=== PATIENT | female | born 1960 | race Caucasian/White ===

== ENCOUNTER 2023-01-25 11:18 | Emergency (ER) | payer MEDICARE, MEDICAID, SELFPAY ==
--- NOTE | 2023-01-25 11:15 | RT.EKG_ITS ---
APPROVED REPORT Exam: Resting ECG Reason for Exam: sob Patient Location: E HR:97 bpm ECG Measurements Heart Rate 97 AXIS WV 120 P 88 QRSd 86 QRS 88 QT 334 T 12 QTc 424 Conclusion Sinus rhythm...normal P axis, V-rate 60- 99 Right atrial enlargement...P>0.25mV 2 lds or<-0.24mV aVR/aVL Anterior infarct, old...Q >40mS, abnormal ST-T, V2-V5 Narrow complex normal sinus rhythm at a rate of 97. Normal axis. No ST segment elevations. ST segm ent depressions V4 through V6. No prior for comparison.
[2023-01-25 11:22] VITALS: BP 134/104; PULSE 110; RESP 24; TEMP 36.7; O2SAT 98
--- NOTE | 2023-01-25 11:29 | W.ED.GENAD ---
Discharge Plan Disposition Patient Disposition: Home Discharge Details Clinical Impression: Acute exacerbation of chronic obstructive pulmonary disease Primary Care Provider: None,None ED Provider: Nadeem Morales Home Meds and New Rx's Prescriptions: New doxycycline hyclate 100 mg capsule 100 mg PO BID Qty: 5 0RF doxycycline hyclate 100 mg capsule 100 mg PO BID Qty: 5 0RF prednisone 20 mg tablet 40 mg PO DAILY 5 Days Qty: 10 0RF ipratropium-albuterol 0.5 mg-3 mg(2.5 mg base)/3 mL solution for nebulization 3 ml inhalation Q20M PRNQty: 180 0RF Rx Instructions: for 3 doses doxycycline hyclate 100 mg capsule 100 mg PO BID Qty: 5 0RF doxycycline hyclate 100 mg capsule 100 mg PO BID Qty: 10 0RF Discharge Instructions Instructions: COPD (Chronic Obstructive Pulmonary Disease) (ED) Additional Instructions: You are seen in the emergency department for your shortness of breath. You are receiving a prescription for antibiotics and steroids which you should take as directed to treat an exacerbation of your COPD. If you feel more short of breath please return to the emergency department. If you develop fevers please return. A prescription has also been sent for a nebulizer which you should use as directed. Discharge Data Discharge Date/Time-TO BE ENTERED AT DEPARTURE: 01/25/23 13:42 Medical Decision Making This is a mildly tachypneic and tachycardic 62-year-old female with tobacco use and history of what sounds like reactive airway disease currently in exacerbation with decreased breath sounds and decreased air entry. Given her tachycardia and her lack of known medical history will obtain a D-dimer to assess for risk of PE. No specific chest pain however based on age will obtain a troponin and if negative will be reassured against ACS. No significant fevers so doubt pneumonia. No history of malignancy so doubt postobstructive process. No history of trauma to suggest pneumothorax. Will reassess and treat with 500 cc of fluid to cover insensible losses. Patient's limited bedside echocardiogram is not consistent with acute CHF and furthermore she has no history of lower extremity swelling or increased weight gain. I considered sepsis as the patient is tachycardic however she is nontoxic-appearing and has had no fevers and I suspect that her tachycardia is secondary to nebulized beta agonists so we will defer lactate blood cultures and broad-spectrum antibiotics at this point time. Given trace pericardial effusion on limited bedside echocardiogram will obtain formal echocardiogram. 12:40 PM CBC notable for leukocytosis and thrombocytosis. No anemia. Chest x-ray reassuring against infiltrate or pneumothorax. Negative troponin. CBC with mild hyperglycemia but no anion gap to suggest DKA. Reassuring creatinine. No acute electrolyte abnormalities. Normal magnesium. Negative D-dimer. Patient reports that she is satisfied with a primary care provider. She needs a refill of her albuterol nebulizer. We will also send her with a burst of prednisone and doxycycline to acute exacerbation of COPD. 1:30 PM I spoke with collections technician Jeri who did not note any significant pericardial effusion. She also noted normal EF. We will discharge patient now. 1:45 PM Jeri called back and she noted that there could possibly be a small pericardial effusion. Patient had already been discharged. I asked health community health director Christen to arrange for follow-up with the patient's PCP in 10 days for repeat reassessment. I called the patient and she was in the parking lot. I advised her of this abnormal echocardiogram. I advised her to follow-up with her primary care provider. Chronic conditions affecting the care of the patient: COPD History obtained from an outside historian: N/A External record review: [facility] EMR Diagnostic interpretations performed by me: [Per my independent interpretation chest x-ray shows:] No acute infiltrate [Per my independent interpretation EKG shows:] Narrow complex normal sinus rhythm at a rate of 97. Normal axis. No ST segment elevations. ST segment depressions V4 through V6. No prior for comparison. Medications: Improved with nebs Social determinants of health affecting disposition: N/A Management discussed with: N/A Treatment/interventions considered: Hospitalization but deferred Response to therapies provided: [place] markedly improved following nebs HPI General Date/Time Provider Initiated Documentation: 01/25/23 11:29. HPI Narrative: This is a 62-year-old female with a history of reactive airway disease arriving via private vehicle in the setting of worsening shortness of breath. Patient says her shortness of breath is worsened over the past several months. She was previously treated with nebulizers and she has attempted treatment at home prior to arrival. She said that this helped slightly. She does not have a primary care provider. She is not having any chest pain. She has never had a PE nor DVT. She quit smoking approximately 1 month ago. She denies routine ethanol. She denies any fevers. She has had increased purulent sputum. She denies any recent falls. Symptoms feel reminiscent of prior episode of reactive airway disease. Related Data Home Medications Medication Instructions Recorded Confirmed doxycycline hyclate 100 mg capsule 100 mg PO BID #10 caps 01/25/23 doxycycline hyclate 100 mg capsule 100 mg PO BID #5 caps 01/25/23 doxycycline hyclate 100 mg capsule 100 mg PO BID #5 caps 01/25/23 doxycycline hyclate 100 mg capsule 100 mg PO BID #5 caps 01/25/23 ipratropium 0.5 mg-albuterol 3 mg 3 ml inhalation Q20M PRN #180 mL 01/25/23 (2.5 mg base)/3 mL nebulization soln prednisone 20 mg tablet 40 mg PO DAILY 5 days #10 tabs 01/25/23 Previous Rx's Medication Instructions Recorded doxycycline hyclate 100 mg capsule 100 mg PO BID #10 caps 01/25/23 doxycycline hyclate 100 mg capsule 100 mg PO BID #5 caps 01/25/23 doxycycline hyclate 100 mg capsule 100 mg PO BID #5 caps 01/25/23 doxycycline hyclate 100 mg capsule 100 mg PO BID #5 caps 01/25/23 ipratropium 0.5 mg-albuterol 3 mg 3 ml inhalation Q20M PRN #180 mL 01/25/23 (2.5 mg base)/3 mL nebulization soln prednisone 20 mg tablet 40 mg PO DAILY 5 days #10 tabs 01/25/23 Allergies Allergy/AdvReac Type Severity Reaction Status Date / Time Penicillins Allergy Unknown Unverified 01/25/23 11:30 General Stated Complaint: SOB LUCIO: 2 PFSH All Active Problems (Updated 01/25/23 @ 12:43 by Nadeem Morales MD) Acute exacerbation of chronic obstructive pulmonary disease (Acute) Medical History (Updated 01/25/23 @ 12:43 by Nadeem Morales MD) Multiple sclerosis Social History Smoking/Tobacco Use Status: Current-Occasional Tobacco Type: cigarettes Smoking risk assessment performed?: Yes Alcohol Intake: never Drug use: Occasionally Substance use type: marijuana Exam Narrative Exam Narrative: General: Well-appearing in no acute distress speaking in complete sentences. Head: Normocephalic, atraumatic. Eye: Pupils equal, round reactive to light. Extraocular eye movements intact. No conjunctival injection. No scleral icterus. Ear, nose, mouth, throat: Grossly normal inspection. Normal voice, handling secretions normally. Neck: Trachea midline. Cardiovascular: Well-perfused distal extremities. Rapid regular rhythm. Significant lower extremity pitting Respiratory: Mild tachypnea. No retractions. Diminished breath sounds diffusely. Gastrointestinal: Nondistended abdomen. Musculoskeletal: No edema. Moving all 4 extremities spontaneously. Skin: Normal for age and race, grossly normal temperature and turgor. No acute rash. Neurologic: Alert and appropriate, no apparent acute deficits. Psychiatric: Mood and manner are appropriate. Grooming and personal hygiene are appropriate. Course Vital Signs Vital signs: Vital Signs Temperature 36.7 C 01/25/23 11:22 Pulse 110 H 01/25/23 11:22 Respiratory Rate 24 01/25/23 11:22 Blood Pressure 134/104 H 01/25/23 11:22 Pulse Oximetry 98 01/25/23 11:22 Temperature 36.7 C 01/25/23 11:22 Pulse 110 H 01/25/23 11:22 Respiratory Rate 24 01/25/23 11:22 Blood Pressure 134/104 H 01/25/23 11:22 Blood Pressure Position Supine 01/25/23 11:22 Pulse Oximetry 98 01/25/23 11:22 Oxygen Delivery Method Room Air 01/25/23 11:22 Oxygen Flow Rate 0 01/25/23 11:22 Pain Level 0 01/25/23 11:22 POCUS Exam (ED) Limited Cardiac Exam DATE OF EXAM: 01/25/23 TIME OF EXAM: 12:05 IS THIS A REPEAT EXAM DURING THIS ENCOUNTER: no REASON FOR EXAM: Dyspnea VISUALIZED STRUCTURES: Four Chambers, Left ventricle, LVOT and IVC VIEW OBTAINED: Apical 4-Chamber and Subxiphoid PERTINENT FINDINGS/IMPRESSION: Pericardial effusion (Trace); No RV dilation INCIDENTAL FINDINGS: Trace pericardial effusion. Patient could not tolerate parasternal long axis. Exam complete
--- NOTE | 2023-01-25 11:30 | DI.RAD_ITS ---
Exam(s) XR PORTABLE CHEST AP EXAM: XR PORTABLE CHEST AP CLINICAL HISTORY: Shortness of breath TECHNIQUE: 2D digital imaging was performed. COMPARISON: No exams were available for comparison FINDINGS: LUNGS: Hyperinflated but clear. No pleural abnormality seen. HEART: Normal size. AORTA: Normal diameter. BONES: Unremarkable for age. Soft tissues: Unremarkable. IMPRESSION: No acute findings. DATA REPOSITORY: RADIATION DOSE DELIVERED:
--- NOTE | 2023-01-25 12:00 | DI.US_ITS ---
APPROVED REPORT EXAM: Comprehensive 2D, Doppler, and color-flow Echocardiogram Patient Location: ER Room/Bed: 4 Silk Spooler: Jeri Carolina RDCS (AE) Indications: Shortness of breath Other Information Study Quality: Fair. Technically limited study due to body habitus, , lung disease very low imaging w indow. Conclusion Normal left ventricular wall thickness and chamber size. Ejection fraction is 65%. Wall motion is n ormal Right ventricle is grossly normal in size and systolic function Both atria are normal in size There is no structural or hemodynamically significant valvular disease Wall motion Left Ventricle The left ventricle is normal size. The overall left ventricular systolic function appears normal. The re is normal left ventricular wall thickness. There is normal LV segmental wall motion. There is no v entricular septal defect visualized. LVEF is 65%. Right Ventricle Right ventricle is grossly normal in size. Right ventricular systolic function is grossly normal. Atria The left atrium size is normal. The right atrium size is normal. The interatrial septum is intact wit h no evidence for an atrial septal defect. Aortic Valve The aortic valve is normal in structure. Aortic valve is probably trileaflet. There is no aortic valv ular stenosis. Mitral Valve The mitral valve is normal in structure. No evidence of mitral valve stenosis. Trace mitral regurgita tion. Tricuspid Valve The tricuspid valve is normal in structure. There is no tricuspid valve stenosis. Trace tricuspid reg urgitation. Pulmonic Valve Pulmonic valve is not well visualized. There is no pulmonic valvular stenosis. Great Vessels The aortic root is normal in size. Ascending aorta is not well visualized. Ascending aorta is not wel l visualized. IVC is normal in size and collapses >50% with inspiration. Pericardium Trivial pericardial effusion. 2D Dimensions IVSD d PLAX 0.62 cm F: 0.6-1.0 LV Vol A2C d MOD 62.4 mL LVPW d PLAX 0.70 cm F: 0.6 - 1.0 LV Vol A4C d MOD 74.0 mL LVID d PLAX 3.52 cm F: 3.8 - 5.2 LV EF A4C MOD 55.0 % LVDs 2.45 cm F: 2.2 - 3.5 LV EF A2C MOD 55.0 % Ao Root d 2.13 cm F: 2.7 - 3.3 LV EF Biplane MOD 54.8 % LV EF Teichholz 58.4 % SV 37.89 mL LVEF (Tate's) 54.83 % F: 54 - 74 SV Index 26.92 mL/m2 LV Volume 59.10 mL F: 46 - 106 LV Volume Index 41.91 mL/m2 F: 29 - 61 LV Vol Biplane MOD 69.1 mL FS 30.05 % M-Mode TAPSE 2.61 cm (M/F) >1.7 LV Diastology MV E' medial 0.078 (>0.07 m/s) E/A Ratio 0.7 LV E/e MED 7.65 (<14) MV E Vmax 0.60 (0.4-1.3 m/s) MV E' lateral 0.086 (>0.1 m/s) MV A Vmax 0.85 (0.4-1.3 m/s) LV E/e LAT 6.90 (<14) MV E/A Ratio 0.68 MV E/E' medial 7.66 MV E/E' lateral 6.93 Aortic Valve LVOT Area 2.96 cm2 AoV Area Vmax 2.03 cm2 LVOT Vmax 1.18 m/s AoV Area/ BSA (Vmax) 1.44 cm2/m2 LVOT Mean Jose. 0.81 m/s AMBER Mean Jose. 1.99 cm2 LVOT Peak Grad 5.6 mmHg AMBER Mean Jose. Index 1.41 cm2/m2 LVOT Mean Grad 2.9 mmHg LVOT VTI 0.218 m LVOT Diam s 1.90 cm AoV Vmax 1.73 m/s Velocity Ratio 0.68 AoV Mean Jose. 1.20 m/s AoV Peak Grad 11.9 mmHg LVOT SV 64.33 mL AoV Mean Grad 6.5 mmHg AoV VTI 0.294 m AoV Area VTI 2.19 cm2 AoV Area/ BSA (VTI) 1.55 cm/m2 Mitral Valve MV DT 311 (160-240 msec) MV PHT 90 msec MV Area PHT 2.44 cm2 MV VTI 0.197 m MV Area VTI 3.26 (4.0-6.0 cm2) Pulmonary Valve PV Vmax 1.05 (0.5-1.5 m/s) RVOT Peak Gr. 2.19 mmHg PV Peak Grad 4.4 mmHg RVOT Mean Gr. 1.05 mmHg PV Mean Grad 2.8 mmHg RVOT VTI 0.137 m PV VTI 0.228 m RVOT Vmax 0.74 m/s Tricuspid Valve TR Peak Grad 31.4 mmHg TR Vmax 2.80 m/s RVSP (TR) 34.4 mmHg
[2023-01-25 12:01] VITALS: RESP 24
[2023-01-25 12:05] LABS: Abs Immature Grans 0.05 10^3/uL (0.0-0.06); Absolute Basophil Count 0.05 10^3/uL (0.0-0.2); Absolute Lymphocyte Count 2.64 10^3/uL (1.2-3.4); Basophils % 0.4; Eosinophils % 0.7; HCT 42.7 % (36.0-46.0); HGB 14.3 g/dL (11.2-15.7); Immature Grans % 0.4; Lymphocytes % 19.6; MCH 29.4 pg (27.0-33.0); MCHC 33.5 % (32.0-36.0); MCV 88 fL (80-95); MPV 10.4 fL (8.0-11.0); Monocytes % 6.8; Neutrophils % 72.1; Platelet Count 425 10^3/uL (130-400); RBC 4.86 10^6/uL (3.93-5.22); RDW 12.7 % (11.7-14.6); WBC 13.48 10^3/uL (4.4-10.8)
[2023-01-25 12:06] LABS: Absolute Eosinophil Count 0.09 10^3/uL (0.0-0.7); Absolute Monocyte Count 0.92 10^3/uL (0.1-0.8); Absolute Neutrophil Count 9.72 10^3/uL (1.2-6.7)
[2023-01-25] MEDS: Albuterol/Ipratropium 3 ML UPD VIAL UPD (12:07)
[2023-01-25] MEDS: predniSONE 20 MG TAB 40 MG PO (12:07)
[2023-01-25 12:21] LABS: Anion Gap 9.1 mmol/L (3-11); BUN 13 mg/dL (7-18); CO2 26.9 mmol/L (21.0-32.0); CREATININE 0.7 mg/dL (0.55-1.02); Calcium 9.4 mg/dL (8.5-10.1); Chloride 101 mmol/L (98-107); Estimated GFR 97.72 (mL/min/1.73m2); Glucose 117 mg/dL (74-106); Magnesium 1.9 mg/dL (1.8-2.4); Potassium 4.5 mmol/L (3.5-5.1); Sodium 137 mmol/L (136-145); Troponin I < 50 ng/L (<or=60)
[2023-01-25] MEDS: Normal Saline 500 ML IV (12:26)
[2023-01-25 12:36] LABS: D-Dimer 312 ng/mlFEU (<500)
[2023-01-25] MEDS: Doxycycline Hyclate 100 MG CAP PO (13:22)
[2023-01-25 13:41] VITALS: BP 141/77; PULSE 87; RESP 20; O2SAT 98
--- NOTE | 2023-01-25 16:48 | NUR.NOTE ---
Nursing Note: Referral given to Care Management for to PCP (pt states goes to [facility]) for pericardial effusion/ within 10 days.
== END 2023-01-25 13:42 | disposition home or self-care (01) ==
LOC: ER 12:57
PROVIDERS: Emergency Provider Emergency Medicine
DX: J44.1 Chronic obstructive pulmonary disease with (acute) exacerbation (principal); R00.0 Tachycardia, unspecified; F17.210 Nicotine dependence, cigarettes, uncomplicated; R07.89 Other chest pain
CPT/HCPCS: 36415; 80048; 93005; 93306; 93308; 96360; 99284; 71045; 83735; 84484; 85025; 85379; 93010; J7512; J7620

== ENCOUNTER 2024-01-20 14:19 | Inpatient (IN) | payer MEDICARE, MEDICAID, SELFPAY ==
[2024-01-20] VITALS (45 sets, daily range): BP systolic 100–170; BP diastolic 70–145; PULSE 100–123; RESP 2–36; TEMP 36.1–36.6; O2SAT 93–100
--- NOTE | 2024-01-20 14:15 | RT.EKG_ITS ---
APPROVED REPORT Exam: Resting ECG Reason for Exam: sob Patient Location: E HR:112 bpm ECG Measurements Heart Rate 112 AXIS PA 118 P 90 QRSd 89 QRS 84 QT 310 T 9 QTc 423 Conclusion Sinus tachycardia...rate> 99 Right atrial enlargement...P>0.25mV 2 lds or<-0.24mV aVR/aVL Anterior infarct, old...Q >40mS, abnormal ST-T, V2-V5 Repol abnrm suggests ischemia, diffuse leads...ST-T neg, ant/lat/inf sinus tachycardia, normal axis, normal intervals, rate related st seg depressions
--- NOTE | 2024-01-20 14:30 | DI.RAD_ITS ---
Exam(s) XR PORTABLE CHEST AP EXAM: XR PORTABLE CHEST AP CLINICAL HISTORY: hx copd sob TECHNIQUE: 2D digital imaging was performed. COMPARISON: CR XR PORTABLE CHEST AP from 01/25/2023 FINDINGS: Exam is limited by overlying oxygen tubing and moderate ring leads. LUNGS: Emphysematous changes. No focal infiltrate or pulmonary edema.. No pleural abnormality seen. HEART: Normal size. AORTA: Normal diameter. BONES: Unremarkable for age. Soft tissues: Unremarkable. IMPRESSION: COPD. No acute abnormality. DATA REPOSITORY: RADIATION DOSE DELIVERED:
[2024-01-20] MEDS: Dexamethasone 10 MG/ML VIAL (14:33)
[2024-01-20 14:36] LABS: Abs Immature Grans 0.05 10^3/uL (0.0-0.06); Absolute Basophil Count 0.05 10^3/uL (0.0-0.2); Absolute Eosinophil Count 0.15 10^3/uL (0.0-0.7); Absolute Lymphocyte Count 3.09 10^3/uL (1.2-3.4); Absolute Monocyte Count 0.64 10^3/uL (0.1-0.8); Basophils % 0.5 %; Eosinophils % 1.4 %; HGB 15.8 g/dL (11.2-15.7); Immature Grans % 0.5 %; Lymphocytes % 28.6 %; MCH 29.4 pg (27.0-33.0); MCHC 33.6 % (32.0-36.0); MCV 87 fL (80-95); MPV 10.3 fL (8.0-11.0); Monocytes % 5.9 %; Neutrophils % 63.1 %; Platelet Count 447 10^3/uL (130-400); RBC 5.38 10^6/uL (3.93-5.22); RDW 12.9 % (11.7-14.6); RDW-SD 40.8 fL; WBC 10.81 10^3/uL (4.4-10.8)
[2024-01-20 14:37] LABS: Absolute Neutrophil Count 6.82 10^3/uL (1.2-6.7)
--- NOTE | 2024-01-20 14:42 | W.ED.GENAD ---
Discharge Plan Disposition Patient Disposition: Admit to [facility] Condition: Stable Discharge Details Chief Complaint: SOB/SuddenOnset Clinical Impression: COPD exacerbation Primary Care Provider: Unknown,Unknown ED Provider: Kar Castro Home Meds and New Rx's Prescriptions: No Action ipratropium-albuterol 0.5 mg-3 mg(2.5 mg base)/3 mL solution for nebulization 3 ml inhalation Q20M PRNQty: 180 0RF Rx Instructions: for 3 doses HPI General Date/Time Provider Initiated Documentation: 01/20/24 14:24. HPI Narrative: 63-year-old female per triage note possible history of asthma, clinical picture appears more consistent with COPD, presents with shortness of breath tachypnea speaking in short 2-3 word sentences, respiratory distress characterized by tachypnea tachycardia retractions and tripoding. Related Data Home Medications Medication Instructions Recorded Confirmed ipratropium 0.5 mg-albuterol 3 mg 3 ml inhalation Q20M PRN #180 mL 01/25/23 01/20/24 (2.5 mg base)/3 mL nebulization soln Previous Rx's Medication Instructions Recorded ipratropium 0.5 mg-albuterol 3 mg 3 ml inhalation Q20M PRN #180 mL 01/25/23 (2.5 mg base)/3 mL nebulization soln Allergies Allergy/AdvReac Type Severity Reaction Status Date / Time Penicillins Allergy Unknown Anaphylaxis Unverified 01/20/24 14:40 General Stated Complaint: SOB/SuddenOnset LUCIO: 2 Review of Systems Narrative: Review of Systems Constitutional: negative Eyes: negative ENT: negative Cardiovascular: negative Respiratory: Respiratory distress Gastrointestinal: negative : negative Musculoskeletal: negative Skin: negative Neurologic: negative Psych: negative Exam Narrative Exam Narrative: Physical Examination General: alert, awake, acute respiratory distress HEENT: normocephalic, atraumatic; PERRL, EOM intact, conjunctiva normal; no nasal discharge Neck: supple, trachea midline; full ROM Chest: normal to inspection Respiratory: Tight lung barnes bilaterally, short rapid breathing, speaking in 2-3 word sentences, tripoding, constant retractions Cardiac: Tachycardia, regular rhythm, S1S2 intact, no murmurs rubs or gallops GI: abdomen soft, non-tender, non-distended; no palpable mass or hepatosplenomegaly Skin: no lesions, rashes or trauma appreciated Neuro: AAOx3, normal speech, moving all extremities Extremities: No peripheral edema Psych: Appropriate mood and affect Course Vital Signs Vital signs: Vital Signs Temperature 36.1 C L 01/20/24 14:23 Pulse 123 H 01/20/24 14:23 Respiratory Rate 36 H 01/20/24 14:23 Blood Pressure 159/122 H 01/20/24 14:23 Pulse Oximetry 95 01/20/24 14:23 Temperature 36.1 C L 01/20/24 14:23 Temperature Source Skin 01/20/24 14:23 Pulse 123 H 01/20/24 14:23 Respiratory Rate 24 01/20/24 14:35 Respiratory Effort Short of Breath, Accessory Muscle Use 01/20/24 14:35 Blood Pressure 159/122 H 01/20/24 14:23 Blood Pressure Position Sitting 01/20/24 14:23 Pulse Oximetry 95 01/20/24 14:23 Oxygen Delivery Method Room Air 01/20/24 14:23 Oxygen Flow Rate 0 01/20/24 14:23 Lab/Test Results Lab/Test Results: Laboratory Tests Range/Units 01/20/24 14:20 WBC (4.4-10.8) 10^3/uL 10.81 H RBC (3.93-5.22) 10^6/uL 5.38 H Hgb (11.2-15.7) g/dL 15.8 H Hct (36.0-46.0) % 47.0 H MCV (80-95) fL 87 MCH (27.0-33.0) pg 29.4 MCHC (32.0-36.0) % 33.6 RDW (11.7-14.6) % 12.9 Plt Count (130-400) 10^3/uL 447 H MPV (8.0-11.0) fL 10.3 Immature Gran % % 0.5 Neutrophils % % 63.1 Lymphocytes % % 28.6 Monocytes % % 5.9 Eosinophils % % 1.4 Basophils % % 0.5 Nucleated RBC % (0.0-0.3) % 0.0 Absolute Neutrophils (1.2-6.7) 10^3/uL 6.82 H Absolute Lymphocytes (1.2-3.4) 10^3/uL 3.09 Absolute Monocytes (0.1-0.8) 10^3/uL 0.64 Absolute Eosinophils (0.0-0.7) 10^3/uL 0.15 Absolute Basophils (0.0-0.2) 10^3/uL 0.05 Medical Decision Making 63-year-old female likely history of COPD presents in respiratory distress, tachycardic tachypneic speaking in 2-3 word sentences, tripoding, tight lung barnes bilaterally, maintaining oxygen saturation mid 90s on room air, patient immediately placed on BiPAP with improvement of respiratory rate and tachycardia respiratory rate improved from 36 breaths/min to 24 breaths/min, tachycardia improved from 120 bpm to 105 bpm, 9 mL albuterol/ipratropium nebulized, dexamethasone 10 mg IV, magnesium 2 g IV given initial presentation as well as possible history of asthma in triage note, obtaining basic labs and stat AP x-ray chest, bedside ultrasound showing no B-lines to suggest pulmonary edema, no pleural effusion appreciated, mild pericardial effusion without signs of cardiac tamponade. High clinical suspicion for COPD exacerbation. Will continue to monitor clinical status. Will attempt to wean off BiPAP. 15: 43 moving air much better, taken off of BiPAP maintaining saturation is 97% room air, speaking in more complete sentences. Still moderately tachypneic. Will continue with nebulized albuterol. Allowing magnesium sulfate to run in. Close reassessment of status likely admission for close observation 16: 36 patient resting comfortably off of BiPAP, however when ambulatory becomes more tachypneic with supraclavicular retractions, at rest is much more comfortable, will admit for continued monitoring of respiratory status continued nebulized albuterol Quality:SDOH Health Related Social Needs: No Data to Display Critical Care Time Critical Care Time Critical Care Time: Yes Total Critical Care Time: 30 Attestation: Critical care time spent at the bedside assessing patient interpreting labs interpreting imaging, coordinating care, initiating BiPAP in patient with respiratory distress COPD exacerbation PFSH All Active Problems (Updated 01/20/24 @ 16:58 by Kar Castro MD) COPD exacerbation (Acute) Medical History (Updated 01/20/24 @ 16:58 by Kar Castro MD) Multiple sclerosis Social History Smoking/Tobacco Use Status: Current-Occasional Tobacco Type: cigarettes Smoking risk assessment performed?: Yes Alcohol Intake: never Drug use: Occasionally Substance use type: marijuana
[2024-01-20] MEDS: Albuterol/Ipratropium 3 ML UPD VIAL 9 ML UPD (14:45)
[2024-01-20] MEDS: MAGNESIUM SULFATE 2 GM/50 ML BAG IVINF (14:47)
[2024-01-20 15:04] LABS: ALT 23 U/L (14-59); AST 15 U/L (15-37); Albumin 4.8 g/dL (3.4-5.0); Alkaline Phosphatase 94 U/L (46-116); Anion Gap 12.1 mmol/L (3-11); BUN 10 mg/dL (7-18); Bilirubin, Total 0.5 mg/dL (0.2-1.0); CO2 26.9 mmol/L (21.0-32.0); CREATININE 0.8 mg/dL (0.55-1.02); Calcium 9.8 mg/dL (8.5-10.1); Chloride 100 mmol/L (98-107); Estimated GFR 82.74 (mL/min/1.73m2); Glucose 125 mg/dL (74-106); Potassium 4.1 mmol/L (3.5-5.1); Sodium 139 mmol/L (136-145); Total Protein 8.4 g/dL (6.4-8.2)
[2024-01-20] MEDS: Albuterol 2.5 MG/3 ML INH SOLN VIAL 5 MG UPD (15:51)
--- NOTE | 2024-01-20 16:59 | HPE_ITS ---
Date of service: 01/20/24 Time of Service: 16:59 Assessment and Plan Assessment and plan (1) COPD exacerbation: Status: Acute Assessment and plan: - Patient has history of COPD but is only on albuterol rescue inhaler -Last exacerbation was in January 2023 -Status post 125 mg methylprednisolone in the emergency department, will continue 40 mg prednisone p.o. daily -Continue scheduled DuoNebs and as needed albuterol -Will recommend patient see pulmonology as outpatient at discharge -Goal oxygen saturation for patient is 88 to 92%, supplemental oxygen ordered if needed History of Present Illness History of Present Illness Chief Complaint: SOB Narrative: 63-year-old female with a past medical history of COPD presents to the emergency department with complaints of shortness of breath. Patient been in her usual state of health and is suddenly had shortness of breath prompting her to present to the emergency department. She states she has not had any change in her sputum production denies any fever, chest pain, or lightheadedness or dizziness. In the emergency department, patient was noted as appearing in respiratory distress, was tachycardic with heart rate over 100 and tachypneic with respiratory rate in the high 30s but had been saturating well on room air. However, given her significant work of breathing she was placed on BiPAP and did initially experience improvement. She was also given IV methylprednisolone and DuoNebs. She was able to be weaned off of BiPAP and off of supplemental oxygen, however when attempting to ambulate the patient she again became significantly short of breath, tachycardic and was noted as having intercostal retractions with breathing. Chest x-ray showed hyperinflation but no infiltrates, CBC and CMP were otherwise unremarkable. At which time emergency room physician paged hospitalist for admission for patient with a COPD exacerbation. Review of Systems All systems reviewed & are unremarkable except as noted in HPI and below PFSH All Active Problems (Updated 01/20/24 @ 16:58 by Kar Castro MD) COPD exacerbation (Acute) Medical History (Updated 01/20/24 @ 16:58 by Kar Castro MD) Multiple sclerosis Social History Smoking/Tobacco Use Status: Current-Occasional Tobacco Type: cigarettes Smoking risk assessment performed?: Yes Alcohol Intake: never Drug use: Occasionally Substance use type: marijuana Meds Allergies and Home Medications Allergies Allergy/AdvReac Type Severity Reaction Status Date / Time Penicillins Allergy Unknown Anaphylaxis Unverified 01/20/24 14:40 Home Medications Medication Instructions Recorded Confirmed Type ipratropium 0.5 mg-albuterol 3 mg 3 ml inhalation Q20M PRN #180 mL 01/25/23 01/20/24 Rx (2.5 mg base)/3 mL nebulization soln Exam Narrative Exam Narrative: Older female laying in bed in no acute distress, ANO x 4, heart regular rate rhythm, with diffuse expiratory wheezing bilaterally, abdomen soft, nontender, nondistended Results Labs 01/20/24 14:20 01/20/24 14:20 Labs: Laboratory Results - last 24 hr 01/20/24 14:20 WBC 10.81 H RBC 5.38 H Hgb 15.8 H Hct 47.0 H MCV 87 MCH 29.4 MCHC 33.6 RDW 12.9 Plt Count 447 H MPV 10.3 Immature Gran % 0.5 Neutrophils % 63.1 Lymphocytes % 28.6 Monocytes % 5.9 Eosinophils % 1.4 Basophils % 0.5 Nucleated RBC % 0.0 Absolute Neutrophils 6.82 H Absolute Lymphocytes 3.09 Absolute Monocytes 0.64 Absolute Eosinophils 0.15 Absolute Basophils 0.05 Sodium 139 Potassium 4.1 Chloride 100 Carbon Dioxide 26.9 Anion Gap 12.1 H BUN 10 Creatinine 0.8 Est GFR (CKD-EPI 2020) 82.74 Glucose 125 H Calcium 9.8 Magnesium 2.0 Total Bilirubin 0.5 AST 15 ALT 23 Alkaline Phosphatase 94 Total Protein 8.4 H Albumin 4.8 Last Vital Signs Temp 97.0 F L 01/20/24 14:23 Pulse 105 H 01/20/24 16:16 Resp 19 01/20/24 16:16 BP 104/74 01/20/24 16:16 Pulse Ox 100 01/20/24 16:16 Time Spent Time spent with Patient: >75 minutes Time was spent: preparing to see the patient(eg.review tests), obtaining and/or reviewing separately otained hiistory, ordering medications,tests, procedures, referring, communicating with other health professional healthcare representative, indepentently interpreting results, counseling the patient and care coordination
[2024-01-20] MEDS: Normal Saline Flush 10 ML SYR IVP (21:17)
[2024-01-20] MEDS: Albuterol/Ipratropium 3 ML UPD VIAL UPD (23:36)
[2024-01-21] VITALS (11 sets, daily range): BP systolic 105–121; BP diastolic 71–82; PULSE 73–120; RESP 9–24; TEMP 36–36.7; O2SAT 91–98
[2024-01-21] MEDS: Albuterol/Ipratropium 3 ML UPD VIAL UPD ×3 (05:48→17:34)
[2024-01-21] MEDS: Albuterol 2.5 MG/3 ML INH SOLN VIAL UPD (06:06)
[2024-01-21 06:51] LABS: HCT 39.7 % (36.0-46.0); HGB 13.5 g/dL (11.2-15.7); MCH 29.7 pg (27.0-33.0); MCV 87 fL (80-95); MPV 10.7 fL (8.0-11.0); Platelet Count 403 10^3/uL (130-400); RBC 4.54 10^6/uL (3.93-5.22); RDW 13.1 % (11.7-14.6); RDW-SD 42.2 fL; WBC 11.78 10^3/uL (4.4-10.8)
[2024-01-21 07:03] LABS: Anion Gap 9.3 mmol/L (3-11); BUN 16 mg/dL (7-18); CO2 27.7 mmol/L (21.0-32.0); CREATININE 0.6 mg/dL (0.55-1.02); Calcium 8.9 mg/dL (8.5-10.1); Chloride 103 mmol/L (98-107); Glucose 103 mg/dL (74-106); Magnesium 2.1 mg/dL (1.8-2.4); Potassium 4.1 mmol/L (3.5-5.1); Sodium 140 mmol/L (136-145)
[2024-01-21] MEDS: predniSONE 20 MG TAB 40 MG PO (08:41)
[2024-01-21] MEDS: Normal Saline Flush 10 ML SYR IVP ×2 (08:42→20:14)
--- NOTE | 2024-01-21 11:01 | INITIAL_ITS ---
Date of service: 01/21/24 Time of Service: 11:01 Care Management Initial Assmt Initial Assessment REASON FOR HOSPITALIZATION:: COPD PREVIOUS FUNCTIONAL STATUS/SOCIAL/FAMILY SUPPORTS:: Eryn lives alone in [place]. She has 4 sons, one daughter, 22 grand children and 14 great grandchildren. Eryn shared that only her daughter lives locally ([place]), all of her other children and grandchildren live in different parts of the country. 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 She is independent at baseline and does not receive any community services. CURRENT FUNCTIONAL STATUS:: Eryn was sitting up in bed when CM met with her. She was pleasant and talkative and engaged easily with CM. Eryn talked about her family and choosing to raise her children in [place] after touring the country. She stated that she has lived [place] every state in the except [place]. Eryn informed CM that she is feeling much better and believes that she will likely be able to go home tomorrow. She denied the need for any services at home. ADVANCE DIRECTIVES:: none on file Has patient been provided with info about the portal/API?: No Did the patient sign up for the portal?: No CODE STATUS:: Full Code INSURANCE COVERAGE / FINANCIAL ISSUES:: Medicare Medicaid CURRENT HOME/COMMUNITY SERVICES/EQUIPMENT:: owns a cane but only uses as needed. POTENTIAL DISCHARGE NEEDS:: follow up appointment with provider PATIENT/FAMILY EDUCATION NEEDS:: Review of discharge instructions, activity, limitations, follow up plan, discuss Ask Me Three TRANSPORTATION:: via private vehicle PLAN:: Anticipate Eryn will be discharged home with no new services. She will follow up with her community providers and plan of acre and transport with family. CM will follow and continue to assess for discharge needs. PFSH All Active Problems (Updated 01/20/24 @ 16:58 by Kar Castro MD) COPD exacerbation (Acute) Medical History (Updated 01/20/24 @ 16:58 by Kar Castro MD) Multiple sclerosis Social History Smoking/Tobacco Use Status: Current-Occasional Tobacco Type: cigarettes Smoking risk assessment performed?: Yes Alcohol Intake: never Drug use: Occasionally Substance use type: marijuana Housing: house [facility](Care Management) Screening Will the Patient Participate in the Screening?: Declined to provide
--- NOTE | 2024-01-21 11:44 | W.PM.PROGNOT ---
Date of Service Date of service: 01/21/24 Time of Service: 11:44 Assessment and Plan Assessment and plan (1) COPD exacerbation: Status: Acute Assessment and plan: -Patient has history of COPD but is only on albuterol rescue inhaler -Last exacerbation was in January 2023 -Status post 125 mg methylprednisolone in the emergency department, will continue 40 mg prednisone p.o. daily -Continue scheduled DuoNebs and as needed albuterol -Will recommend patient see pulmonology as outpatient at discharge -Goal oxygen saturation for patient is 88 to 92%, supplemental oxygen ordered if needed Subjective Subjective Interval history since last seen: Patient states that she is feeling better today but that she continues to have significant exertional shortness of breath. Otherwise she has no other complaints or concerns at this time. Exam Narrative Exam Narrative: Older female laying in bed in no acute distress, ANO x 4, heart regular rate rhythm, with diffuse expiratory wheezing bilaterally, abdomen soft, nontender, nondistended Objective Last Vital Signs Temp 97.2 F L 01/21/24 11:06 Pulse 91 H 01/21/24 11:06 Resp 15 01/21/24 11:06 BP 115/82 01/21/24 11:06 Pulse Ox 93 01/21/24 11:06 Laboratory Results - last 24 hr 01/20/24 01/21/24 14:20 06:03 WBC 10.81 H 11.78 H RBC 5.38 H 4.54 Hgb 15.8 H 13.5 D Hct 47.0 H 39.7 MCV 87 87 MCH 29.4 29.7 MCHC 33.6 34.0 RDW 12.9 13.1 Plt Count 447 H 403 H MPV 10.3 10.7 Immature Gran % 0.5 Neutrophils % 63.1 Lymphocytes % 28.6 Monocytes % 5.9 Eosinophils % 1.4 Basophils % 0.5 Nucleated RBC % 0.0 Absolute Neutrophils 6.82 H Absolute Lymphocytes 3.09 Absolute Monocytes 0.64 Absolute Eosinophils 0.15 Absolute Basophils 0.05 Sodium 139 140 Potassium 4.1 4.1 Chloride 100 103 Carbon Dioxide 26.9 27.7 Anion Gap 12.1 H 9.3 BUN 10 16 Creatinine 0.8 0.6 Est GFR (CKD-EPI 2020) 82.74 100.80 Glucose 125 H 103 Calcium 9.8 8.9 Magnesium 2.0 2.1 Total Bilirubin 0.5 AST 15 ALT 23 Alkaline Phosphatase 94 Total Protein 8.4 H Albumin 4.8 Time Spent with Patient Time Spent with Patient: >50 minutes Time was spent: preparing to see the patient(eg.review tests), obtaining and/or reviewing separately otained hiistory, ordering medications,tests, procedures, referring, communicating with other health foster care therapist, indepentently interpreting results, counseling the patient and care coordination
--- NOTE | 2024-01-21 12:41 | PHA.REVIEW2 ---
Pharmacy Admission Review Admission Clinical Review Admission Pharmacy Review: COPD exacerbation (Acute) Penicillins Allergy (Unknown, Unverified 01/20/24 14:40) Anaphylaxis Resuscitation Status Full Code Height 5 ft 2 in Weight 46.901 kg Comments Comments/Follow Ups: Watch HR, labs, and for med changes. Pharmacy Admission Review Renal Dosing Renal Dosing: BUN 16 mg/dL (7-18) 01/21/24 06:03 Creatinine 0.6 mg/dL (0.55-1.02) 01/21/24 06:03 Medications needing adjustments: Reviewed (Crcl ~42.63 mL/min current meds okay) Anticoagulation Anticoagulation: Hgb 13.5 g/dL (11.2-15.7) D 01/21/24 06:03 Hct 39.7 % (36.0-46.0) 01/21/24 06:03 Plt Count 403 10^3/uL (130-400) H 01/21/24 06:03 Creatinine 0.6 mg/dL (0.55-1.02) 01/21/24 06:03 DVT Prophylaxis: Reviewed Medications: Enoxaparin Therapeutic Anticoagulation: N/A Opiate Usage Evaluate Pain Scale/Pains Meds: N/A Relevant Labs Relevant Labs: Sodium 140 mmol/L (136-145) 01/21/24 06:03 Potassium 4.1 mmol/L (3.5-5.1) 01/21/24 06:03 Chloride 103 mmol/L (98-107) 01/21/24 06:03 Magnesium 2.1 mg/dL (1.8-2.4) 01/21/24 06:03 Electrolytes, C-Reactive P, ESR: Reviewed DM Control DM Control: N/A (No DM in medical history, no A1c on file) Cardiac Review BP, HR, EF%: Reviewed (HR has been elevated most of admission so far) QTc Review QTc: Reviewed (QTc 423 on admission) IV to PO Switch IV Medications: Reviewed Home Meds Home Med List reviewed: Reviewed Relevent Home Meds Not ordered & why?: all home meds listed are currently ordered Current Meds Current Medication Order Review: Intervened (Adjusted timing of the duonebs so scheduled for an even hour per med administration time policy) Comments Comments/Follow Ups: Watch HR, labs, and for med changes.
--- NOTE | 2024-01-21 13:59 | CHAPLAIN ---
Eryn was in bed when I visited. She said she's spend all day yesterday in the ED and got admitted about 7p.m. and was given some toast. She was able to have more for breakfast, she said. Eryn was pleasant and engaged in conversation. I explained my role and offered support.
[2024-01-22 00:07] VITALS: PULSE 93; RESP 16; RESP 2; RESP 9; O2SAT 93
[2024-01-22] MEDS: Albuterol/Ipratropium 3 ML UPD VIAL UPD ×2 (00:07→05:51)
[2024-01-22 00:12] VITALS: PULSE 90; RESP 18; RESP 2; RESP 9; O2SAT 97
[2024-01-22 03:46] VITALS: BP 100/52; PULSE 92; RESP 16; TEMP 36.6; O2SAT 95
[2024-01-22 05:51] VITALS: PULSE 73; RESP 16; RESP 2; RESP 9; O2SAT 95
[2024-01-22 05:57] VITALS: PULSE 78; RESP 18; RESP 2; RESP 9; O2SAT 99
[2024-01-22] MEDS: predniSONE 20 MG TAB 40 MG PO (07:36)
[2024-01-22] MEDS: Normal Saline Flush 10 ML SYR IVP (07:37)
[2024-01-22 07:59] VITALS: BP 103/82; PULSE 87; RESP 16; TEMP 35.9; O2SAT 90
--- NOTE | 2024-01-22 09:03 | DSE_ITS ---
Date of service: 01/22/24 Time of Service: 09:26 DS: Diagnosis Discharge Diagnosis (1) COPD exacerbation: Status: Acute Asessment and Plan: Patient initially presented with signs and symptoms consistent with a COPD exacerbation though she never required supplemental oxygen, she was significantly exertionally short of breath. She was treated with nebulizer treatments and steroids and ultimately had an improvement to the point where she was back to her functional baseline was determined to be stable for discharge home with an additional 5 days of 40 mg p.o. prednisone Discharge Plan Disposition Patient Disposition: Home Condition: Good Discharge Details Reason For Visit: Acute exacerbation of COPD Admit Date/Time: 01/20/24 16:59 Admit Provider: Fred Mcclure Attending Provider: Fred Mcclure Primary Care Provider: Unknown,Unknown Hospital Course Hospital Course: Patient initially presented with signs and symptoms consistent with a COPD exacerbation though she never required supplemental oxygen, she was significantly exertionally short of breath. She was treated with nebulizer treatments and steroids and ultimately had an improvement to the point where she was back to her functional baseline was determined to be stable for discharge home. Home Meds and New Rx's Prescriptions: New prednisone 20 mg Tablet 40 mg PO DAILY Qty: 10 0RF Continued ipratropium-albuterol 0.5 mg-3 mg(2.5 mg base)/3 mL solution for nebulization 3 ml inhalation Q20M PRNQty: 180 0RF Rx Instructions: for 3 doses Discharge Instructions Stand Alone Forms: Nursing Discharge Form Referrals: Nanette Ventura MD [ [facility] STAFF PHYSICIAN] - (Please call on Wednesday for an appt in 10-14 days) Activity:: Activity as Tolerated Equipment/Supplies:: No Equipment Needed Diet:: As Tolerated Discharge Orders Discharge Orders: Discharge Order (Routine); Ordered 01/22/24 Ordered By: Fred Mcclure DS: Summary Time Spent with Patient providing and/or coordinating discharge services: Greater than 30 minutes Status at Discharge Functional status at discharge: independent ambulation Overall status at discharge: patient is back to baseline Mental Status: mental status grossly normal Speech and Movement: speech and movement normal Mood: congruent mood Affect: normal affect Quality:SDOH Health Related Social Needs: No Data to Display Exam Narrative Exam Narrative: Older female laying in bed in no acute distress, ANO x 4, heart regular rate rhythm, with minimal expiratory wheezing bilaterally, abdomen soft, nontender, nondistended Psych Mental Status: mental status grossly normal Speech and Movement: speech and movement normal Mood: congruent mood Affect: normal affect DS: Data Vitals/I&O Vitals and I&O: Vital Signs Temperature 96.6 F L 01/22/24 07:59 Temperature Source Tympanic 01/22/24 07:59 Pulse 87 01/22/24 07:59 Pulse Rhythm Regular 01/21/24 23:56 Pulse 101 H 01/20/24 18:10 Respiratory Rate 16 01/22/24 07:59 Respiratory Effort Normal, Non-Labored 01/21/24 20:11 Respiratory Depth Normal 01/21/24 20:11 Respiratory Pattern Normal 01/21/24 20:11 Blood Pressure 103/82 01/22/24 07:59 Blood Pressure Mean 88 01/20/24 16:31 Blood Pressure Position Sitting 01/20/24 14:23 Pulse Oximetry 90 L 01/22/24 07:59 Oxygen Delivery Method Room Air 01/22/24 07:59 Oxygen Flow Rate 0 01/22/24 07:59 Fraction of Inspired Oxygen (FIO2) 21 01/20/24 18:49 Pain Level 0 01/22/24 07:59 Intake & Output 01/21/24 01/22/24 01/22/24 17:59 05:59 17:59 Intake Total 1290 / 1290 Output Total 1000 / 1000 Balance 290 / 290 Intake: IV 10 Oral 1280 / 1280 Output: Urine 1000 / 1000 Other: Urine Color Pale Urine Appearance Clear Urine Odor None Stool Size Small Stool Characteristics Formed Voiding Methods Toilet PFSH All Active Problems (Updated 01/20/24 @ 16:58 by Kar Castro MD) COPD exacerbation (Acute) Medical History (Updated 01/20/24 @ 16:58 by Kar Castro MD) Multiple sclerosis Social History Smoking/Tobacco Use Status: Current-Occasional Tobacco Type: cigarettes Smoking risk assessment performed?: Yes Alcohol Intake: never Drug use: Occasionally Substance use type: marijuana Housing: house Time Spent with Patient Time Spent with Patient: <45 minutes Time was spent: preparing to see the patient(eg.review tests), obtaining and/or reviewing separately otained hiistory, ordering medications,tests, procedures, referring, communicating with other health care technician, indepentently interpreting results, counseling the patient and care coordination
--- NOTE | 2024-01-22 10:06 | CMDISCH_ITS ---
Date of service: 01/22/24 Time of Service: 10:06 LACE Index Scoring Tool Questions: Length of Stay (in days): 2 Was the patient admitted via the E.D.?: Yes Comorbidities: Chronic Pulmonary Disease E.D. Visits: 1 Answers: Total Score: 8 Risk of Readmission: Low Risk Care Management Discharge Plan Reason for Hospitalization: COPD Discharge Plan: Eryn will be discharged home with no new services. She will make an appointment with a local provider and follow up with her discharge plan of care. her daughter will drive her home via private vehicle. Patient/Family Education Needs: Review of discharge instructions, activity, limitations, follow up plan, discuss Ask Me Three [facility] Health Related Social Needs: No Data to Display
== END 2024-01-22 09:50 | disposition home or self-care (01) | DRG 192 ==
LOC: ER 18:15 → MS 18:22
PROVIDERS: Admitting Provider Family Medicine; Emergency Provider Emergency Medicine; Visit Provider Family Medicine
DX: J44.1 Chronic obstructive pulmonary disease with (acute) exacerbation (principal); G35 Multiple sclerosis; F17.210 Nicotine dependence, cigarettes, uncomplicated; F12.90 Cannabis use, unspecified, uncomplicated; R06.03 Acute respiratory distress
CPT/HCPCS: 00123; 36415; 80048; 80053; 85027; 93005; 94640; 96365; 96366; 96372; 99291; 71045; 83735; 85025; 93010; 94660; 94760; 99223; 99233; 99238; J1100; J3475; J7512; J7613; J7620

== ENCOUNTER 2024-02-10 10:30 | Inpatient (IN) | payer MEDICARE, MEDICAID, SELFPAY ==
[2024-02-10] VITALS (38 sets, daily range): BP systolic 128–221; BP diastolic 75–112; PULSE 103–127; RESP 5–45; TEMP 35.9–36.9; O2SAT 92–100
--- NOTE | 2024-02-10 10:36 | ED.GENADUL_ITS ---
Discharge Plan Disposition Patient Disposition: Admit to [facility] Condition: Good Discharge Details Chief Complaint: SOB Clinical Impression: Acute respiratory distress, COPD exacerbation Admit Date/Time: 02/10/24 13:13 Admit Provider: Nadeem Noyola Attending Provider: Nadeem Noyola Primary Care Provider: Unknown,Unknown ED Provider: Abimael Jackman Discharge Data Discharge Date/Time-TO BE ENTERED AT DEPARTURE: 02/10/24 14:01 HPI General Date/Time Provider Initiated Documentation: 02/10/24 10:33 . HPI Narrative: 63-year-old female with a past medical history of COPD, with a recent admission about 3 weeks ago presents today for evaluation of shortness of breath. Patient states that she was discharged previously for COPD exacerbation, had been doing well, and then over the last 24 to 48 hours has become notably more short of breath. She is concerned about toxic mold in her house at this time and her exposure to that bringing about her symptoms. She has seen mold at her house, and has noted this to be an exacerbating component. She does not normally use oxygen at baseline.. She denies any chest pain. Patient does not add much more to the historical component of her symptoms secondary to her acute respiratory distress and difficulty breathing. She was on a 5-day course of azithromycin when she was discharged over 2-/2/3 weeks ago, and has been off of this for quite some time. Related Data Home Medications Medication Instructions Recorded Confirmed ipratropium 0.5 mg-albuterol 3 mg 3 ml inhalation Q20M PRN #180 mL 01/22/24 02/10/24 (2.5 mg base)/3 mL nebulization soln prednisone 20 mg tablet 40 mg (2 x 20 mg) PO DAILY #10 tabs 01/22/24 02/10/24 Previous Rx's Medication Instructions Recorded ipratropium 0.5 mg-albuterol 3 mg 3 ml inhalation Q20M PRN #180 mL 01/22/24 (2.5 mg base)/3 mL nebulization soln prednisone 20 mg tablet 40 mg (2 x 20 mg) PO DAILY #10 tabs 01/22/24 Allergies Allergy/AdvReac Type Severity Reaction Status Date / Time Penicillins Allergy Unknown Anaphylaxis Unverified 02/10/24 10:33 General Stated Complaint: SOB LUCIO: 2 Review of Systems All systems reviewed & are unremarkable except as noted in HPI and below Exam Narrative Exam Narrative: 1.Const: Well-nourished, Well-developed, appearing stated age 2.Eyes: PERRL, no conjunctival injection, and symmetrical lids. 3.ENT: Atraumatic external nose and ears. Moist MM. Neck: Symmetric, trachea midline, No thyromegaly. 4.CVS: +S1/S2, No murmurs or gallops. Peripheral pulses 2+ and equal in all extremities. Brisk capillary refill in all extremities. 5.RESP: Diminished respiratory movement throughout, diffuse wheezes throughout. No crackles or rhonchi. Intercostal retractions are noted throughout. 6.GI: Soft, Nontender/Nondistended, No hepatosplenomegaly. No guarding or r ebound. 7.MSK: Normocephalic/Atraumatic, Extremities w/o deformity or ttp No cyanosis or clubbing, Normal movement of all extremities 8.Skin: Warm, Dry. No rashes or lesions. 9.Neuro: software development coordinator II-XII grossly intact. Sensation grossly intact, no focal neurologic deficits. 10.Psych: (AAO) x3. Appropriate mood and affect Course Vital Signs Vital signs: Vital Signs Temperature 35.9 C L 02/10/24 10:31 Pulse 115 H 02/10/24 10:31 Respiratory Rate 45 H 02/10/24 10:31 Blood Pressure 221/112 H 02/10/24 10:31 Pulse Oximetry 94 02/10/24 10:31 Temperature 35.9 C L 02/10/24 10:31 Temperature Source Skin 02/10/24 10:31 Pulse 115 H 02/10/24 10:31 Respiratory Rate 45 H 02/10/24 10:31 Blood Pressure 221/112 H 02/10/24 10:31 Pulse Oximetry 94 02/10/24 10:31 Oxygen Delivery Method Nasal Cannula 02/10/24 10:31 Medical Decision Making 63-year-old female with a past medical history of COPD, with a recent admission about 3 weeks ago presents today for evaluation of shortness of breath. Patient states that she was discharged previously for COPD exacerbation, had been doing well, and then over the last 24 to 48 hours has become notably more short of breath. She is concerned about toxic mold in her house at this time and her exposure to that bringing about her symptoms. She has seen mold at her house, and has noted this to be an exacerbating component. She does not normally use oxygen at baseline.. She denies any chest pain. Patient does not add much more to the historical component of her symptoms secondary to her acute respiratory distress and difficulty breathing. She was on a 5-day course of azithromycin when she was discharged over 2-/2/3 weeks ago, and has been off of this for quite some time. Exam demonstrates patient with mild to moderate respiratory distress. Seated saturating at around 90% on room air. Intercostal retractions are present, deep wheezes throughout, and notably increased respiratory effort. Symptoms appear concerning for COPD exacerbation. We will give DuoNebs, steroids, monitor closely and reassess. Symptoms appear inconsistent with pneumothorax or PE. 5:22 PM Blood pressure is notably improved, laboratory workup shows no white count, no bandemia. VBG stable. Electrolytes normal. Troponin normal. However in spite of this the patient had a return of her wheezes. She drops down to about 90%, we do try to get her up to ambulate her she is completely unable to. She becomes extremely dyspneic, short of breath, and maintains notable wheeziness. I do not feel that she would be a good candidate for discharge home. I suspect she needs continued time with the steroids and breathing treatments. Discussed the case with hospitalist Dr. Kelly, he agrees with the assessment and plan. I have extensively reviewed the treatment plan with the patient. I have addressed all patient concerns at this time. I have also discussed the plan with the admitting physician and they agree with the current assessment and plan and have agreed to assume responsibility for the patient. All parties demonstrate verbal understanding and agreement with our assessment and plan at this time. The documentation in this chart was dictated using [employer] dictation software. Please excuse any dictation errors. FINDINGS: Single AP portable view. Heart size is upper normal. The mediastinum is not widened. Bilateral lung hyperinflation is again noted. No new infiltrates nor pleural effusions. No pulmonary edema. No pneumothorax IMPRESSION: No acute pulmonary findings on this single AP portable view of the chest.Hyperinflation again noted. Quality:SDOH Health Related Social Needs: Health related social needs inadequate housing, transp o insecurity Critical Care Time Critical Care Time Critical Care Time: Yes Total Critical Care Time: 45 Attestation: Upon my evaluation, this patient had a high probability of imminent or life- threatening deterioration, which required my direct attention, intervention, and personal management. I have personally provided 45 minutes of critical care time exclusive of time spent on separately billable procedures. Time includes review of laboratory data, radiology results, discussion with consultants, and monitoring for potential decompensation. Interventions were performed as documented. PFSH All Active Problems (Updated 02/10/24 @ 17:26 by Abimael Jackman DO) COPD exacerbation (Acute) Acute respiratory distress (Acute) Medical History Multiple sclerosis Social History Smoking/Tobacco Use Status: Current-Occasional Tobacco Type: cigarettes Smoking risk assessment performed?: Yes Alcohol Intake: never Drug use: Occasionally Substance use type: marijuana Housing: house
[2024-02-10] MEDS: Albuterol/Ipratropium 3 ML UPD VIAL 9 ML UPD (10:40)
[2024-02-10 10:47] LABS: BE (Venous) -1 mmol/L (-2-3); HCO3 (Venous) 25 mmol/L (23-28); O2 Sat (Venous) 79 %; TCO2 (Venous) 22 mmol/L (24-29); pCO2 (Venous) 49 mmHg (41-51); pH (Venous) 7.32 (7.31-7.41); pO2 (Venous) 49 mmHg
[2024-02-10 10:49] LABS: Abs Immature Grans 0.03 10^3/uL (0.0-0.06); Absolute Basophil Count 0.06 10^3/uL (0.0-0.2); Absolute Eosinophil Count 0.11 10^3/uL (0.0-0.7); Absolute Lymphocyte Count 2.19 10^3/uL (1.2-3.4); Absolute Neutrophil Count 5.96 10^3/uL (1.2-6.7); Basophils % 0.7 %; Eosinophils % 1.3 %; HCT 43.1 % (36.0-46.0); HGB 14.4 g/dL (11.2-15.7); Immature Grans % 0.3 %; Lactate 3.1 mmol/L (0.6-1.4); MCH 29.8 pg (27.0-33.0); MCHC 33.4 % (32.0-36.0); MCV 89 fL (80-95); MPV 10.3 fL (8.0-11.0); Monocytes % 4.6 %; Neutrophils % 68.1 %; Platelet Count 447 10^3/uL (130-400); RBC 4.84 10^6/uL (3.93-5.22); RDW 12.8 % (11.7-14.6); RDW-SD 42.1 fL; WBC 8.75 10^3/uL (4.4-10.8)
--- NOTE | 2024-02-10 10:51 | DI.RAD_ITS ---
Exam(s) XR PORTABLE CHEST AP EXAM: XR PORTABLE CHEST AP CLINICAL HISTORY: sob, copd. TECHNIQUE: 2D digital imaging was performed. COMPARISON: CR XR PORTABLE CHEST AP from 01/20/2024 FINDINGS: Single AP portable view. Heart size is upper normal. The mediastinum is not widened. Bilateral lung hyperinflation is again noted. No new infiltrates nor pleural effusions. No pulmonar y edema. No pneumothorax IMPRESSION: No acute pulmonary findings on this single AP portable view of the chest.Hyperinflation again noted. DATA REPOSITORY: RADIATION DOSE DELIVERED:
[2024-02-10] MEDS: methylPREDNISolone SUCC 125 MG VIAL IVP (10:52)
[2024-02-10 11:01] LABS: INR 1.1 (0.9-1.1); PTT Activated 25.5 sec (23.6-32.8); Prothrombin Time 11.1 sec (9.1-11.1)
[2024-02-10 11:14] LABS: ALT 31 U/L (14-59); AST 17 U/L (15-37); Albumin 4.3 g/dL (3.4-5.0); Alkaline Phosphatase 80 U/L (46-116); Anion Gap 11.2 mmol/L (3-11); BUN 9 mg/dL (7-18); Bilirubin, Total 0.5 mg/dL (0.2-1.0); CO2 25.8 mmol/L (21.0-32.0); CREATININE 0.8 mg/dL (0.55-1.02); Chloride 100 mmol/L (98-107); Estimated GFR 82.74 (mL/min/1.73m2); Glucose 159 mg/dL (74-106); NT-proBNP 122 pg/mL (<300); Potassium 3.9 mmol/L (3.5-5.1); Sodium 137 mmol/L (136-145); Total Protein 7.5 g/dL (6.4-8.2); Troponin I < 50 ng/L (< or =60)
[2024-02-10] MEDS: Albuterol/Ipratropium 3 ML UPD VIAL UPD (11:40)
[2024-02-10] MEDS: DOXYCYCLINE 100 MG in Normal Saline 100 ML IVPB (13:00)
--- NOTE | 2024-02-10 13:46 | W.PM.HP.N ---
Date of service: 02/10/24 Time of Service: 12:46 Assessment and Plan Assessment and plan (1) COPD exacerbation: Status: Acute Assessment and plan: Steroids Doxycycline Nebs Mucinex sputum culture IS Acapella Labs in AM CM consulted on home nebulizer coverage by insurance RT consulted on possibility to issue a nebulizer if discharge on 02/10 Pulmonary f/u Patient has no PCP DVT prophylaxis: LMWH SC Discused with Dr. Noyola (2) Acute respiratory distress: Status: Acute Assessment and plan: As above Continue to monitor History of Present Illness History of Present Illness Chief Complaint: Shortness of breath, increased work of breathing, COPD exacerbation Narrative: This 60-year-old female patient with a past medical history of COPD, tobacco abuse with recent cessation, with recent admission and discharged on 01/22/2024 for COPD exacerbation, presented to the ED at [facility] today for evaluation of increased work of breathing, dyspnea at rest. The patient reported doing well after her discharge and decompensating over the last 2 to 3 days with increased shortness of breath. Patient also reporting tight blood As been discovered in her kitchen with investigation to determine further propagation.The patient denies chest pain. In the ED the patient had a nebulizer treatment and initially improved while remaining dypsneic with conversation. Saturation in Oxygen remained 91-93% on RA. Lab in the ED were unremarkable except for a VBG lactate of 3.1. Imaging was negative for pulmonary findings.The hospitalist was consulted and the patient admitted to the medical surgical floor for observation.The patient received IV steroids and doxycycline in the ED. When met in room, the patient denied fever, chills, headache, nasal congestion , change in vision, increased sputum production, chest pain, GI or symptoms. The patient reporting difficulty clearing secretions. The patient reported that her nebulizer machine stopped working 2-3 days ago and then she started to experience the reported symptoms. The patient reported feeling better with the nebulizers initiated in the ED. Discussed the coverage for new nebulizer machine with CM and RT contacted for clarification. Review of Systems All systems reviewed & are unremarkable except as noted in HPI and below PFSH All Active Problems (Updated 02/10/24 @ 17:26 by Abimael Jackman DO) COPD exacerbation (Acute) Acute respiratory distress (Acute) Medical History Multiple sclerosis Social History Smoking/Tobacco Use Status: Current-Occasional Tobacco Type: cigarettes Smoking risk assessment performed?: Yes Alcohol Intake: never Drug use: Occasionally Substance use type: marijuana Housing: house Meds Allergies and Home Medications Allergies Allergy/AdvReac Type Severity Reaction Status Date / Time Penicillins Allergy Unknown Anaphylaxis Unverified 02/10/24 10:33 Home Medications Medication Instructions Recorded Confirmed Type ipratropium 0.5 mg-albuterol 3 mg 3 ml inhalation Q20M PRN #180 mL 01/22/24 02/10/24 Rx (2.5 mg base)/3 mL nebulization soln prednisone 20 mg tablet 40 mg (2 x 20 mg) PO DAILY #10 tabs 01/22/24 02/10/24 Rx Results Labs 02/10/24 10:37 02/10/24 10:37 Labs: Laboratory Results - last 24 hr 02/10/24 10:37 WBC 8.75 RBC 4.84 Hgb 14.4 Hct 43.1 MCV 89 MCH 29.8 MCHC 33.4 RDW 12.8 Plt Count 447 H MPV 10.3 Immature Gran % 0.3 Neutrophils % 68.1 Lymphocytes % 25.0 Monocytes % 4.6 Eosinophils % 1.3 Basophils % 0.7 Nucleated RBC % 0.0 Absolute Neutrophils 5.96 Absolute Lymphocytes 2.19 Absolute Monocytes 0.40 Absolute Eosinophils 0.11 Absolute Basophils 0.06 PT 11.1 INR 1.1 APTT 25.5 VBG pH 7.32 VBG pCO2 49 VBG pO2 49 VBG HCO3 25 VBG Total CO2 22 L VBG O2 Saturation 79 VBG Base Excess -1 VBG Lactate 3.1 H* Sodium 137 Potassium 3.9 Chloride 100 Carbon Dioxide 25.8 Anion Gap 11.2 H BUN 9 Creatinine 0.8 Est GFR (CKD-EPI 2020) 82.74 Glucose 159 H Calcium 9.0 Total Bilirubin 0.5 AST 17 ALT 31 Alkaline Phosphatase 80 Troponin I < 50 NT-Pro-B Natriuret Pep 122 Total Protein 7.5 Albumin 4.3 Last Vital Signs Temp 36.9 C 02/10/24 10:41 Pulse 111 H 02/10/24 12:00 Resp 19 02/10/24 11:40 BP 138/84 02/10/24 12:00 Pulse Ox 100 02/10/24 12:01 Time Spent Time spent with Patient: >75 minutes Time was spent: preparing to see the patient(eg.review tests), obtaining and/or reviewing separately otained hiistory, ordering medications,tests, procedures, referring, communicating with other health residential care facility manager, indepentently interpreting results, counseling the patient and care coordination
[2024-02-10 14:14] LABS: Troponin I < 50 ng/L (< or =60)
[2024-02-10] MEDS: Albuterol/Ipratropium 3 ML UPD VIAL IH (14:51)
--- NOTE | 2024-02-10 17:12 | CHAPLAIN ---
Eryn was sitting up in bed, working to breath. She said her oxygen levels are ok, she just needs to work on catching her breath. Her dinner had just arrived as well, so I told her I would check in with her another time.
[2024-02-10 18:29] LABS: Lab Add On Test DONE
[2024-02-10 19:20] LABS: Procalcitonin < 0.1 ng/mL
[2024-02-10] MEDS: guaiFENesin 600 MG TABCR PO (19:22)
[2024-02-10] MEDS: Normal Saline Flush 10 ML SYR IVP (19:22)
[2024-02-11] VITALS (8 sets, daily range): BP systolic 97–159; BP diastolic 74–94; PULSE 82–97; RESP 20–22; TEMP 35.3–37; O2SAT 92–97
[2024-02-11 06:35] LABS: Abs Immature Grans 0.03 10^3/uL (0.0-0.06); Absolute Basophil Count 0.04 10^3/uL (0.0-0.2); Absolute Eosinophil Count 0.08 10^3/uL (0.0-0.7); Absolute Lymphocyte Count 3.91 10^3/uL (1.2-3.4); Basophils % 0.3 %; Eosinophils % 0.6 %; HCT 40.2 % (36.0-46.0); HGB 13.6 g/dL (11.2-15.7); Immature Grans % 0.2 %; Lymphocytes % 29.9 %; MCH 29.4 pg (27.0-33.0); MCHC 33.8 % (32.0-36.0); MCV 87 fL (80-95); MPV 10.7 fL (8.0-11.0); Monocytes % 8.4 %; Neutrophils % 60.6 %; Platelet Count 430 10^3/uL (130-400); RBC 4.62 10^6/uL (3.93-5.22); RDW-SD 41.1 fL; WBC 13.07 10^3/uL (4.4-10.8)
[2024-02-11 06:39] LABS: Absolute Neutrophil Count 7.92 10^3/uL (1.2-6.7)
[2024-02-11 06:49] LABS: Anion Gap 9.4 mmol/L (3-11); BUN 12 mg/dL (7-18); CO2 27.6 mmol/L (21.0-32.0); CREATININE 0.6 mg/dL (0.55-1.02); Calcium 9.1 mg/dL (8.5-10.1); Chloride 103 mmol/L (98-107); Glucose 106 mg/dL (74-106); Magnesium 1.9 mg/dL (1.8-2.4); Potassium 4.1 mmol/L (3.5-5.1); Sodium 140 mmol/L (136-145)
[2024-02-11] MEDS: predniSONE 20 MG TAB 40 MG PO (09:43)
[2024-02-11] MEDS: guaiFENesin 600 MG TABCR PO ×2 (09:43→20:00)
[2024-02-11] MEDS: Normal Saline Flush 10 ML SYR IVP ×2 (09:44→20:00)
--- NOTE | 2024-02-11 10:23 | INITIAL_ITS ---
Date of service: 02/11/24 Time of Service: 10:23 Care Management Initial Assmt Initial Assessment Reason for Hospitalization: COPD Functional Status/Living Situation Patient Presentation: Eryn is and lives alone in [place] with her cat. 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 She is independent at baseline and does not receive any community services. Town of Residence: [place] Resides with: Alone Significant Other/Family: Local ( ) Caregiver/Guardian: None Natural Supports: Eryn has 4 sons, one daughter, 22 grand children and 14 great grandchildren. Her daughter lives locally ([place]), all of her other children and grandchildren live in different parts of the country. In addition, her friend Bernardo Briceño and his daughter Elida live locally and are very supportive. Bernardo is like a son to her and currently in the process of remodeling her kitchen due to mold. She is planning on returning to her home following discharge but if unable she can stay with Bernardo. Employment Status: Retired Instrumental Activities of Daily Living (ADLs): Independent Medications Medication Management: No Issues/Barriers identified Physical Functioning/Mobility Assistive Device: None Advance Directives Advance Directives: Do you have an Advance Directive: N 01/25/23 12:12 AD On File at [facility]: N 01/25/23 12:12 Date Asked 02/10/24 02/10/24 10:40 AD Date Reviewed COLST On File at [facility] COLST Date Scanned Code Status Resuscitation Status Full Code Portal Pt does not currently have a portal and education provided: No Insurance Coverage/Financial Issues Insurance: Medicaid Medicare ACO Member: No Care Team Visit Care Team Role Provider Type Unknown Unknown Primary Care Provider STAFF PHYSICIAN Abimael Jackman DO Emergency Provider [facility] STAFF PHYSICIAN Nadeem Noyola Admit Provider [facility] STAFF PHYSICIAN Attending Provider Discharge Potential Discharge Needs: PCP F/U Appt (Will need a T-Doc follow up) Anticipated Barriers to Discharge: None Identified Patient/Family Education Needs: Review discharge instructions, discuss Ask Me Three Transportation: Private vehicle (Daughter will transport) Plan: Anticipate, Eryn will discharge to her home in [place] when medically ready. She will follow up with community providers and her discharge plan of care as instructed. T-Doc follow up will be needed, patient does not have a PCP. Daughter will transport. New O/E VNA services will be ordered, if needed. [facility] All Active Problems (Updated 02/10/24 @ 17:26 by Abimael Jackman DO) COPD exacerbation (Acute) Acute respiratory distress (Acute) Medical History Multiple sclerosis Social History Smoking/Tobacco Use Status: Current-Occasional Tobacco Type: cigarettes Smoking risk assessment performed?: Yes Alcohol Intake: never Drug use: Occasionally Substance use type: marijuana Housing: house Readmission Within the Past 30 Days Yes or No: Yes Date of First Admission Date of 1st Admission: 01/20/24 Date of this Admission Date of Admission: 02/10/24 This admission was: Through ED Office Visit Since 1st Admission Have you seen your PCP in the office since discharge?: No Had an appointment Been Scheduled?: No Speicalist Appointments Have you seen any other specialist since your 1st Admission?: No I. Interview patient and/or Family Difficulty reaching your doctor or getting an office appt?: No Have you had trouble purchasing/ or taking medication?: No Have you had trouble with getting meals at home?: No Did you feel ready for discharge when you left the last time: Yes Were services received that you thought were set up on disch: Yes How do you think you became sick enough to come back?: The patient reported doing well after her discharge and decompensating over the last 2 to 3 days with increased shortness of breath. If the patient had a VNA ordered Did the patient have a VNA order?: No Ask the Care Team Members: What do you think caused the patient to be readmitted: On her last admission, she admitted in 01/19 and insisted on discharging the following day. Unfortunately her Nebulizer broke on Wednesday. . ED visits How many ED visits in the past 12 months: 2 Assessment for Readmission Summary of readmission circumstances, based upon interviews: Eryn has chronic COPD, her home is currently under construction due to Mold. She also relies heavily on her nebulizer and it broke on Wednesday after which her breathing became worse. SDOH(Care Management) Screening Will the Patient Participate in the Screening?: Yes Do you worry about having a steady place to live?: no Problems where you live: mold In the past 12 months, have you had to go without electric, gas, oil or water in your home?: no Have you or anyone in your house had to go without enough food to eat?: no Has lack of transportation kept you from medical appointments or from doing things needed for daily living?: yes Has anyone in your support network made you feel unsafe for any reason?: no Health Related Social Needs Health related social needs: inadequate housing(Z59.1) and transportation insecurity(Z59.82)
--- NOTE | 2024-02-11 11:03 | PGE_ITS ---
Date of Service Date of service: 02/11/24 Time of Service: 11:03 Assessment and Plan Assessment and plan (1) COPD exacerbation: Status: Acute Assessment and plan: Continue Steroids: prednisone Doxycycline IV then PO on d/c Nebs schedukedb and PRN -RT will provide nebulizer on d/c Mucinex 600 mg Q12 sputum culture pending IS Acapella Labs in AM -CBC: WBC 13.07 was 8.75 on arrival (2) Acute respiratory distress: Status: Acute Assessment and plan: As above Continue to monitor (3) On deep vein thrombosis (DVT) prophylaxis: Status: Acute Assessment and plan: Continue LMWH (4) Discharge planning issues: Status: Acute Assessment and plan: Probable d/c home on 02/11 PT PCP: none at this time, but will have a f/u w/i 7 days of discharge Pulmonary medicine: F/u s/p discharge CM consulted on home nebulizer coverage by insurance -Patient also mentioned most likely resolving script coverage issues-referred to CM RT consulted on possibility to issue a nebulizer if discharge on 02/[address] Noyola Subjective Subjective Patient reports: no new complaints (Feeling that urging provider to d/c her home early on previous admission was a mistake ), feels better, tolerating liquids well, tolerating a regular diet, voiding w/o difficulty, flatus, bowel movement, shortness of breath and other (Cough with increased sputum production with change in color); denies diarrhea, blood in stool, nausea, vomiting or fever Exam Narrative Exam Narrative: Constitutional The patient is still SOB with ambulation to BSC, and long conversations Neuro:alert and oriented X 4, no focal deficit Resp:speaks in 5 word sentences w labored breathing, clear anterior upper lung bilaterally, posteriorly diminished Cardio: regular rhythm, S1, S2, positive radial and pedal pulses GI: Abdomen is not distended, soft and non tender, bowel sounds are present Extremities: strength 5/5 to bilateral lower and upper extremities Psych: RASS 0, congruent mood and normal affect. Objective Last Vital Signs Temp 36.7 C 02/11/24 07:30 Pulse 82 02/11/24 07:30 Resp 20 02/11/24 07:30 BP 159/85 H 02/11/24 07:30 Pulse Ox 92 02/11/24 09:45 Laboratory Results - last 24 hr 02/10/24 02/10/24 02/10/24 10:37 13:48 18:05 WBC RBC Hgb Hct MCV MCH MCHC RDW Plt Count MPV Immature Gran % Neutrophils % Lymphocytes % Monocytes % Eosinophils % Basophils % Nucleated RBC % Absolute Neutrophils Absolute Lymphocytes Absolute Monocytes Absolute Eosinophils Absolute Basophils Sodium 137 Potassium 3.9 Chloride 100 Carbon Dioxide 25.8 Anion Gap 11.2 H BUN 9 Creatinine 0.8 Est GFR (CKD-EPI 2020) 82.74 Glucose 159 H Calcium 9.0 Magnesium Total Bilirubin 0.5 AST 17 ALT 31 Alkaline Phosphatase 80 Troponin I < 50 < 50 NT-Pro-B Natriuret Pep 122 Total Protein 7.5 Albumin 4.3 Procalcitonin < 0.1 Add-On Test Request DONE 02/11/24 06:04 WBC 13.07 H RBC 4.62 Hgb 13.6 Hct 40.2 MCV 87 MCH 29.4 MCHC 33.8 RDW 13.0 Plt Count 430 H MPV 10.7 Immature Gran % 0.2 Neutrophils % 60.6 Lymphocytes % 29.9 Monocytes % 8.4 Eosinophils % 0.6 Basophils % 0.3 Nucleated RBC % 0.0 Absolute Neutrophils 7.92 H Absolute Lymphocytes 3.91 H Absolute Monocytes 1.10 H Absolute Eosinophils 0.08 Absolute Basophils 0.04 Sodium 140 Potassium 4.1 Chloride 103 Carbon Dioxide 27.6 Anion Gap 9.4 BUN 12 Creatinine 0.6 Est GFR (CKD-EPI 2020) 100.80 Glucose 106 Calcium 9.1 Magnesium 1.9 Total Bilirubin AST ALT Alkaline Phosphatase Troponin I NT-Pro-B Natriuret Pep Total Protein Albumin Procalcitonin Add-On Test Request Time Spent with Patient Time Spent with Patient: >50 minutes Time was spent: preparing to see the patient(eg.review tests), obtaining and/or reviewing separately otained hiistory, ordering medications,tests, procedures, referring, communicating with other health healthcare educator, indepentently interpreting results, counseling the patient and care coordination
[2024-02-11] MEDS: DOXYCYCLINE 100 MG in Normal Saline 100 ML IVPB (12:20)
--- NOTE | 2024-02-11 16:25 | PT.INNT ---
PT Notes Visit Reasons: COPD Exacerbation Patient seen twice this afternoon but has refused PT evaluation as she has been dyspneic at rest. PT came in immediately after Nurse Sher assisted patient back to bed from bedside commode. Patient appeared to be in labored breathing, was anxious, and could not talk. A second attempt was made about 45 minutes after but patient politely requested not to be seen today as she does not feel that she is able to do anything. Nurse Laine was updated and is okay with akash tomorrow. On-call PT Nereida informed about plan as well. Patient seen from 16:03-16:17 PM. No charges were made.
[2024-02-12] MEDS: DOXYCYCLINE 100 MG in Normal Saline 100 ML IVPB (00:15)
[2024-02-12 03:19] VITALS: BP 133/80; PULSE 90; RESP 22; TEMP 36; O2SAT 94
[2024-02-12 06:53] LABS: Abs Immature Grans 0.04 10^3/uL (0.0-0.06); Absolute Basophil Count 0.04 10^3/uL (0.0-0.2); Absolute Eosinophil Count 0.14 10^3/uL (0.0-0.7); Absolute Lymphocyte Count 5.98 10^3/uL (1.2-3.4); Absolute Monocyte Count 0.88 10^3/uL (0.1-0.8); Absolute Neutrophil Count 6.03 10^3/uL (1.2-6.7); Basophils % 0.3 %; Eosinophils % 1.1 %; HCT 41.5 % (36.0-46.0); Immature Grans % 0.3 %; Lymphocytes % 45.6 %; MCH 29.7 pg (27.0-33.0); MCHC 33.7 % (32.0-36.0); MCV 88 fL (80-95); MPV 10.8 fL (8.0-11.0); Monocytes % 6.7 %; Platelet Count 418 10^3/uL (130-400); RBC 4.71 10^6/uL (3.93-5.22); RDW 12.8 % (11.7-14.6); RDW-SD 41.6 fL; WBC 13.11 10^3/uL (4.4-10.8)
[2024-02-12 06:57] LABS: Diff Comment Diff Reviewed; RBC Morphology Normal
[2024-02-12] MEDS: Normal Saline Flush 10 ML SYR IVP (07:30)
[2024-02-12] MEDS: guaiFENesin 600 MG TABCR PO (07:31)
[2024-02-12] MEDS: predniSONE 20 MG TAB 40 MG PO (07:31)
[2024-02-12 07:50] VITALS: BP 149/112; PULSE 78; RESP 20; TEMP 36.3; O2SAT 96
[2024-02-12] MEDS: LORazepam 0.5 MG TAB PO ×2 (08:28→12:27)
--- NOTE | 2024-02-12 09:21 | W.PM.PROGNOT ---
Date of Service Date of service: 02/12/24 Time of Service: 09:22 Assessment and Plan Assessment and plan (1) COPD exacerbation: Status: Acute Assessment and plan: Continue Steroids: prednisone Doxycycline IV then PO on d/c Nebs schedukedb and PRN -RT will provide nebulizer on d/c Mucinex 600 mg Q12 sputum culture pending IS [facility] Labs in AM -CBC: WBC 13.07 was 8.75 on arrival (2) Acute respiratory distress: Status: Acute Assessment and plan: As above Continue to monitor (3) On deep vein thrombosis (DVT) prophylaxis: Status: Acute Assessment and plan: Continue LMWH (4) Discharge planning issues: Status: Acute Assessment and plan: Probable d/c home on 02/11 PT PCP: none at this time, but will have a f/u w/i 7 days of discharge Pulmonary medicine: F/u s/p discharge CM consulted on home nebulizer coverage by insurance -Patient also mentioned most likely resolving script coverage issues-referred to CM RT consulted on possibility to issue a nebulizer if discharge on 02/[address] Noyola Objective Last Vital Signs Temp 36.3 C L 02/12/24 07:50 Pulse 78 02/12/24 07:50 Resp 20 02/12/24 07:50 BP 149/112 H 02/12/24 07:50 Pulse Ox 96 02/12/24 07:50 Laboratory Results - last 24 hr 02/12/24 05:43 WBC 13.11 H RBC 4.71 Hgb 14.0 Hct 41.5 MCV 88 MCH 29.7 MCHC 33.7 RDW 12.8 Plt Count 418 H MPV 10.8 Immature Gran % 0.3 Neutrophils % 46.0 Lymphocytes % 45.6 Monocytes % 6.7 Eosinophils % 1.1 Basophils % 0.3 Nucleated RBC % 0.0 Absolute Neutrophils 6.03 Absolute Lymphocytes 5.98 H Absolute Monocytes 0.88 H Absolute Eosinophils 0.14 Absolute Basophils 0.04 RBC Morphology Normal
--- NOTE | 2024-02-12 10:14 | IN_ITS ---
PT Notes Visit Reasons: COPD Exacerbation Physical Therapy Inpatient Initial Evaluation Date: 02/12/24 Referring Doctor: Laine Chris PT Orders: PT CONSULT: Safety Consult for D/C Precautions: Fall. Standard. Activity as tolerated. Patient Profile/Admitting Diagnosis: Eryn is 63 yo female that presented to the ER on 02/09/25 for shortness of breath. History of COPD which has been worsening. She does report a mold issue that is being worked on. Diagnosed with COPD exacerbation. PMHX: See EMR Social History/Home Situation: Lives alone with no steps to enter. Indicates independent with baseline. Equipment Owned/DME: None Subjective: Cleared by nursing to see patient and patient is agreeable to PT. Patient is propped upright in bed at time of consult. Objective: General Observation: Apical chest breathing, short and fast Mental Status: A&O x3 Pain: None ROM: Right Upper Extremity: Shoulder Flexion WFL. Shoulder abduction WFL. Elbow flexion WFL. Wrist flexion WFL. Opening and closing of hand WFL. Left Upper Extremity: Shoulder Flexion WFL. Shoulder abduction WFL. Elbow flexion WFL. Wrist flexion WFL. Opening and closing of hand WFL. Right Lower Extremity: Hip flexion WFL. Hip abduction WFL. Knee flexion WFL. Ankle dorsiflexion WFL. Ankle plantarflexion WFL. Left Lower Extremity: Hip flexion WFL. Hip abduction WFL. Knee flexion WFL. Ankle dorsiflexion WFL. Ankle plantarflexion WFL. Strength: Right Upper Extremity: Not able to assess. Left Upper Extremity: Not able to assess. Right Lower Extremity: Not able to assess. Left Lower Extremity: Not able to assess. Sensation: Intact as to pain and pressure on bilateral lower extremities. Bed Mobility/Transfers: Supine to sit: Supervision Sit to supine: Supervision Sit to stand: Supervision Stand to sit: Supervision Bed to chair: Supervision Chair to bed: Supervision Gait: Unable to assess Balance: Static Sitting: Fair Dynamic Sitting: Fair Static Standing: Poor Dynamic Standing: Poor Special Tests: Mobility Limitations Standardized Measure [facility] AM-PAC 6 clicks Basic Mobility Inpatient Short Form: Raw Score: 16 CMS Score: 54% Informed Consent/Education: Patient instructed in purpose of PT consult and plan of care. Assessment: Patient is demonstrating rapid breathing with accessory muscle use. Reports she was feeling like being strangled, but now stuff in lungs is breaking up and feels like drowning. She reports unable to walk anywhere due to her breathing. Patient does transfer to bedside commode independently with supervision. She is very quick due to the breathing limiting her from wanting to take more time. She also reports being quite warm. At present due to lack of ability to be fully independent with ADLs and walking secondary to breathing difficulties, she would not be safe to be home independently. Depending how she progresses may benefit from home with assist versus SNF stay more related to safety of being alone and not being able to address her basic needs form a breathing and energy perspective. Patient presents with clinical signs and symptoms consistent with current/admitting diagnoses that have resulted to mobility limitations, gait instability, generalized weakness, and impairment of motor control as demonstrated by the following impairment level findings: 1. Impaired activity tolerance Impairments are contributing to the following functional limitations: 1. Increased dependence with transfers 2. Inability to safely ambulate without assistive device and physical assistance 3. Increase completion time for mobility ADL performance 4. Increased fall risk Patient is assessed as a Moderate complexity based on the following: History: 63 year old female with impairment level findings, functional limitations, and past medical history as indicated above Examination: Demonstrable impairment in strength, balance, and mobility level with underlying impairments and functional limitations as documented above Presentation: Evolving Decision Making: Moderate complexity Goals: Goals x1 week 1. Supine-Sit: independent 2. Sit-Supine: independent 3. Sit-Stand: independent 4. Stand-Sit: independent 5. Bed-Chair: independent 6. Chair-Bed: independent 7. Independent gait on level surface with use of least restrictive device for at least 100 feet without report of pain nor dyspnea Plan of Care/Treatment Plan: 1x/day, 7 days/week x1 week. Plan of care has been reviewed with the CLINICAL OPERATIONS LEADER providing the service under Physical Therapy direction. Initiate Physical Therapy intervention for strengthening, bed mobility, transfers, gait, stairs, balance training, and use of assistive device. Discharge Plan DISCHARGE RECOMMENDATIONS: Home with assist vs SNF for continued rehabilitation due to limited activity tolerances related to breathing difficulty TREATMENT CODE/TIME: 9:43-10:04 (21 minutes), [id number] Thank you for the opportunity to participate in the care of this patient. Nereida Hill, PT, DPT, O[facility] [place], [place]
[2024-02-12 10:50] VITALS: PULSE 101; O2SAT 91
[2024-02-12 11:17] VITALS: BP 136/115; PULSE 101; RESP 20; TEMP 36.4; O2SAT 90
[2024-02-12] MEDS: Doxycycline Hyclate 100 MG CAP PO (12:21)
[2024-02-12] MEDS: Ipratropium/Albuterol 4 GM 120 PUFF INH IH (13:14)
[2024-02-12] MEDS: Budesonide/Formoterol 80/4.5 6.9 GM 60 PUFF INH IH (13:14)
[2024-02-12 13:28] VITALS: PULSE 106; PULSE 107; PULSE 114; O2SAT 92; O2SAT 93
--- NOTE | 2024-02-12 14:42 | DSE_ITS ---
Date of service: 02/12/24 Time of Service: 14:42 DS: Diagnosis Discharge Diagnosis (1) COPD exacerbation: Status: Acute (2) Acute respiratory distress: Status: Acute Discharge Plan Disposition Patient Disposition: Home W/Home Health Services Condition: Improving Discharge Details Reason For Visit: COPD Exacerbation Admit Date/Time: 02/10/24 13:13 Admit Provider: Nadeem Noyola Attending Provider: Nadeem Noyola Primary Care Provider: Unknown,Unknown Hospital Course Hospital Course: This 60-year-old female patient with a past medical history of COPD, tobacco abuse with recent cessation, recent admission and discharged on 01/22/2024 for COPD exacerbation presented to the ED at [facility] on 02/10/2024 for evaluation of increased work of breathing, and dyspnea at rest. In the ED the patient reported doing well after her discharge and decompensating over the last 2 to 3 days with increased shortness of breath. The patient reported to the ED provider that black mold has been discovered in her kitchen with investigation to determine further propagation. In the ED the patient received an initial nebulizer treatment with improvement while remaining dyspneic during conversations; oxygen saturation remained 9193 on room air. Labs were unremarkable except for a VBG lactate of 3.1 without fever or leukocytosis. Pulmonary findings were negative on imaging. The hospitalist was consulted and patient was admitted to the medical surgical floor. In the emergency room the patient received IV steroids and IV doxycycline as well as IV lorazepam for increased anxiety.. Later on the floor the patient reported that her nebulizer treatment machine had been broken since Wednesday and preventing her from pursuing a home nebulizer treatment ordered on the previous discharge. Review of system was negative for fever, chills, headache, nasal congestion, change in vision, increase in sputum production, chest pain, gastrointestinal or genitourinary symptoms. The patient reported that she felt overwhelmed when trying to catch her breath notable to notice any other changes around her. Low-dose lorazepam as needed was proposed to the patient. The patient initially refused as she stated I do not need that. The patient reported having difficulty clearing secretions. The patient was started on Mucinex, Vibra Pep with an increase in sputum production. On the floor treatment was continued with oral prednisone and IV doxycycline. The patient continued to receive nebulizer treatments. The patient vital signs remained stable. Care management offered home health services to the patient and directions to straighten her insurance coverage for medication. The patient refused home health services and initiated calls to insurance company on 02/11/2024. The patient refused ambulatory oximetry testing on 02/11/2024 and 02/12/2024 despite multiple attempts. The respiratory therapist observed a minimum saturation of 92% on 10 feet ambulation between the bedside commode the bed and the chair this morning. The patient was observed to be having a normal work of breathing while resting in bed but work of breathing increased as providers entered the room. The patient experienced increased work of breathing during transfer with rated relatively rapid recovery. Home health PT again offered to patient to which she agreed upon with concerns regarding her exact location. animal husbandry worker will be added. A referral was completed for outpatient pulmonary medicine. This is the second hospitalization for COPD exacerbation in a month with eosinophils between 0.6 and 1.4. The patient was started on Symbicort, tiotropium and rescue inhalers. It is uncertain if the patient will be able to obtain a new nebulizer machine through [facility] as they will not be available until Wednesday. The patient will be discharged home today on the inhalers and medicines initiated during her stay; will not be discharged on nebulizer. The pharmacy will dispense doxycycline 100 mg oral every 12 hours, Mucinex 600 mg oral every 6-12 hours and prednisone 40 mg oral daily for the patient to have enough supply until Wednesday. The patient will go home with the inhalers started in the hospital. During education with the respiratory therapist, the patient mentioned having used inhalers in the past and seemed to have been familiar with taking inhalers with spacer. The patient will need to follow-up with a PCP within 7 to 10 days of discharge. Discussed with Dr. Noyola Home Meds and New Rx's Prescriptions: New albuterol sulfate [Ventolin HFA] 90 mcg/actuation Hfa Aerosol Inhaler 2 puff inhalation Q4H PRN PRNQty: 6.7 0RF docusate sodium [Colace] 100 mg Capsule 100 mg PO DAILY Qty: 30 0RF doxycycline hyclate 100 mg Capsule 100 mg PO BID Qty: 4 0RF guaifenesin [Mucus Relief ER] 600 mg Tablet Extended Release 12hr 600 mg PO BID Qty: 4 0RF (DME) Inhaler, Assist Devices [Pocket Chamber] See Rx Instructions .Route .MEDSUPPLY Qty: 1 0RF Rx Instructions: As directed Combivent Respimat 20-100 mcg/actuation Mist 1 puff inhalation QID PRNQty: 4 0RF prednisone 20 mg Tablet See Rx Instructions .ROUTE .COMPLEX Qty: 12 0RF Rx Instructions: 40 mg orally for 5 days then 20 mg for 3 days then stop Spiriva Respimat 2.5 mcg/actuation Mist 2 puff inhalation DAILY Qty: 4 0RF Held prednisone 20 mg Tablet 40 mg PO DAILY Qty: 10 0RF Hold Instructions: Resume on 02/12/24. New taper Discontinued ipratropium-albuterol 0.5 mg-3 mg(2.5 mg base)/3 mL solution for nebulization 3 ml inhalation Q20M PRNQty: 180 2RF Rx Instructions: for 3 doses Discharge Instructions Stand Alone Forms: Nursing Discharge Form Referrals: Kelley Montano [Other] (Please call and tell them you were admitted on 02/10/[address] Montano, You need a follow up appointment for 1-2 weeks ) Nanette Ventura MD [ [facility] ST[facility]FF [facility]YSICIAN] - (60-year-old female PMHX of COPD (unknown PFTs), tobacco abuse with recent cessation, with recent admission and discharged on 01/22/2024 for COPD exacerbation, presented to the ED at [facility] today for evaluation of increased work of breathing, dyspnea at rest. The patient reported doing well after her discharge and decompensating over the last 2 to 3 days with increased shortness of breath, nebulizer machine broke. Discharged on Symbicort, tiotropium and rescue inhalers, Mucinex, doxy and pred taper. Please call them on Wednesday to make an appointment ) Unknown,Unknown [Primary Care Provider] - (F/u with PCP in 7 to 10 days of discharge) Activity:: Activity as Tolerated Equipment/Supplies:: No Equipment Needed Diet:: As Tolerated Discharge Orders Discharge Orders: Discharge Order (Routine); Ordered 02/12/24 Ordered By: Laine Chris DS: Summary Time Spent with Patient providing and/or coordinating discharge services: Greater than 30 minutes Status at Discharge Functional status at discharge: independent ambulation Overall status at discharge: patient is progressing back to baseline Mental Status: mental status grossly normal Speech and Movement: speech and movement normal and pressured speech Mood: congruent mood Affect: normal affect Quality:SDOH Health Related Social Needs: Health related social needs inadequate housing, transp o insecurity Exam Narrative Exam Narrative: Constitutional No acute distress when resting Neuro:alert and oriented X 4, no focal deficit Resp:speaks in 7-word sentences w/o significant labored breathing, increased WOB with ambulation w/o desaturation, rapid recovery, lungs CTA but diminished LL Cardio: regular rhythm, S1, S2, positive radial and pedal pulses GI: Abdomen is not distended, soft and non tender, bowel sounds are present Extremities: strength 5/5 to bilateral lower and upper extremities Psych: RASS 0, congruent mood and normal affect. Psych Mental Status: mental status grossly normal Speech and Movement: speech and movement normal and pressured speech Mood: congruent mood Affect: normal affect DS: Data Vitals/I&O Vitals and I&O: Vital Signs Temperature 36.4 C L 02/12/24 11:17 Temperature Source Temporal Artery Scan 02/12/24 11:17 Pulse 101 H 02/12/24 11:17 Pulse Rhythm Regular 02/12/24 07:36 Pulse 115 H 02/10/24 12:20 Respiratory Rate 20 02/12/24 11:17 Respiratory Effort Short of Breath, Pursed Lip, Incrsd Work of Breathing 02/12/24 07:36 Respiratory Depth Retractive 02/12/24 07:36 Respiratory Pattern Tachypnea 02/12/24 07:36 Blood Pressure 136/115 H 02/12/24 11:17 Blood Pressure Mean 111 02/10/24 13:47 Pulse Oximetry 90 L 02/12/24 11:17 Oxygen Delivery Method Room Air 02/12/24 11:17 Oxygen Flow Rate 0 02/12/24 11:17 Pain Level 3 02/12/24 11:17 Comment RN notified of vitals 02/12/24 11:17 Intake & Output 02/11/24 02/12/24 02/12/24 23:59 11:59 23:59 Intake Total 580 / 1530 200 / 440 240 / 440 Output Total 300 / 1600 1100 / 1600 500 / 1600 Balance 280 / -70 -900 / -1160 -260 / -1160 Intake: IV 100 / 200 200 / 200 Oral 480 / 1330 240 / 240 Output: Urine 300 / 1600 1100 / 1600 500 / 1600 Other: Urine Color Yellow Yellow Yellow Urine Appearance Clear Clear Clear Urine Odor None Comment pT voided, used commode. Voiding Methods Bedside Commode Bedside Commode Bedside Commode Data Completed and Pending Labs on day of discharge: Labs from last 24 hours 02/12/24 05:43 WBC 13.11 H RBC 4.71 Hgb 14.0 Hct 41.5 MCV 88 MCH 29.7 MCHC 33.7 RDW 12.8 Plt Count 418 H MPV 10.8 Immature Gran % 0.3 Neutrophils % 46.0 Lymphocytes % 45.6 Monocytes % 6.7 Eosinophils % 1.1 Basophils % 0.3 Nucleated RBC % 0.0 Absolute Neutrophils 6.03 Absolute Lymphocytes 5.98 H Absolute Monocytes 0.88 H Absolute Eosinophils 0.14 Absolute Basophils 0.04 RBC Morphology Normal Preliminary micro results at discharge 02/10/24 10:37 Blood Culture - Preliminary Blood NO GROWTH 48 HOURS 02/10/24 10:38 Blood Culture - Preliminary Blood NO GROWTH 48 HOURS 02/11/24 13:34 Sputum Culture - Preliminary Sputum Normal [place] PFSH All Active Problems (Updated 02/11/24 @ 11:50 by Laine Chris APRN) On deep vein thrombosis (DVT) prophylaxis (Acute) Discharge planning issues (Acute) COPD exacerbation (Acute) Acute respiratory distress (Acute) Medical History Multiple sclerosis Social History Smoking/Tobacco Use Status: Current-Occasional Tobacco Type: cigarettes Smoking risk assessment performed?: Yes Alcohol Intake: never Drug use: Occasionally Substance use type: marijuana Housing: house Time Spent with Patient Time Spent with Patient: >85 minutes Time was spent: preparing to see the patient(eg.review tests), obtaining and/or reviewing separately otained hiistory, ordering medications,tests, procedures, referring, communicating with other health manager intensive care, indepentently interpreting results, counseling the patient and care coordination
--- NOTE | 2024-02-12 15:13 | PDOC.HHF2F_ITS ---
Home Health Referral Home Health Orders Clinical synopsis of why skilled professionals are needed: This 60-year-old female patient with a past medical history of COPD, tobacco abuse with recent cessation, recent admission and discharged on 01/22/2024 for COPD exacerbation presented to the ED at [facility] on 02/10/2024 for evaluation of increased work of breathing, and dyspnea at rest. In the ED the patient reported doing well after her discharge and decompensating over the last 2 to 3 days with increased shortness of breath. The patient reported to the ED provider that black mold has been discovered in her kitchen with investigation to determine further propagation. In the ED the patient received an initial nebulizer treatment with improvement while remaining dyspneic during conversations; oxygen saturation remained 9193 on room air. Labs were unremarkable except for a VBG lactate of 3.1 without fever or leukocytosis. Pulmonary findings were negative on imaging. The hospitalist was consulted and patient was admitted to the medical surgical floor. In the emergency room the patient received IV steroids and IV doxycycline as well as IV lorazepam for increased anxiety.. Later on the floor the patient reported that her nebulizer treatment machine had been broken since Wednesday and preventing her from pursuing a home nebulizer treatment ordered on the previous discharge. Review of system was negative for fever, chills, headache, nasal congestion, change in vision, increase in sputum production, chest pain, gastrointestinal or genitourinary symptoms. The patient reported that she felt overwhelmed when trying to catch her breath notable to notice any other changes around her. Low-dose lorazepam as needed was proposed to the patient. The patient initially refused as she stated I do not need that. The patient reported having difficulty clearing secretions. The patient was started on Mucinex, Vibra Pep with an increase in sputum production. On the floor treatment was continued with oral prednisone and IV doxycycline. The patient continued to receive nebulizer treatments. The patient vital signs remained stable. Care management offered home health services to the patient and directions to straighten her insurance coverage for medication. The patient refused home health services and initiated calls to insurance company on 02/11/2024. The patient refused ambulatory oximetry testing on 02/11/2024 and 02/12/2024 despite multiple attempts. The respiratory therapist observed a minimum saturation of 92% on 10 feet ambulation between the bedside commode the bed and the chair this morning. The patient was observed to be having a normal work of breathing while resting in bed but work of breathing increased as providers entered the room. The patient experienced increased work of breathing during transfer with rated relatively rapid recovery. Home health PT again offered to patient to which she agreed upon with concerns regarding her exact location. tangled yarn worker will be added. This is the second hospitalization for COPD exacerbation in a month with eosinophils between 0.6 and 1.4. The patient was started on Symbicort, tiotropium and rescue inhalers. It is uncertain if the patient will be able to obtain a new nebulizer machine through [facility] as they will not be available until Wednesday. The patient will be discharged home today on the inhalers and medicines initiated during her stay; will not be discharged on nebulizer. The pharmacy will dispense doxycycline 100 mg oral every 12 hours, Mucinex 600 mg oral every 6-12 hours and prednisone 40 mg oral daily for the patient to have enough supply until Wednesday. The patient will go home with the inhalers started in the hospital. During education with the respiratory therapist, the patient mentioned having used inhalers in the past and seemed to have been familiar with taking inhalers with spacer. The patient will need to follow-up with a PCP within 7 to 10 days of discharge.Referral was made for outpatient pulmonary medicine. Medical diagnosis necessitation home health referral: Requires frequent rest period, coordination of care, compliance with meds and monintoring worsening of symptoms, better breathing program Registered Nurse: Check all that apply Assess for exacerbation of medical condition, instruct patient/caregivers on signs and symptoms to report for early detection: Ordered Physical Therapist: Check all that apply Better Breathing Program: Ordered Security Software Engineer: Assist with community resources: Ordered Assist with care home care planning: Ordered Encounter Date and Reason: I certify that a FTF encounter for this patient was performed on February 12, 2024 and that such encounter was related to the primary reason the patient requires home health services. The encounter was conducted in the following manner: * By me as the certifying physician, ELEVATED MOTORMAN, PA or * By an inpatient physician, ELEVATED MOTORMAN or PA during an inpatient stay who communicated findings to me, Certification And Authentication I certify that I composed the above information based on my clinical judgment relating to this patient's medical condition and, if applicable, clinical findings communicated to me by the NPP or inpatient physician who performed the FTF encounter. Name of Provider that will be monitoring home health services: PCP
--- NOTE | 2024-02-13 09:24 | PDOC.CMDIS ---
Date of service: 02/13/24 Time of Service: 09:24 LACE Index Scoring Tool Questions: Length of Stay (in days): 2 Was the patient admitted via the E.D.?: Yes Comorbidities: Chronic Pulmonary Disease E.D. Visits: 2 Answers: Total Score: 9 Risk of Readmission: Low Risk Care Management Discharge Plan Reason for Hospitalization: COPD Exacerbation Discharge Plan: Eryn will follow up with [facility] [place]. [facility] Hospitalist will order medications (including inhalers) from [facility] pharmacy to be released on discharge to support Eryn until she is able to obtain medications and prescription coverage. Eryn will have new orders for home health, follow up with her PCP and transport via private vehicle with a friend. Patient/Family Education Needs: Review discharge instructions, discuss Ask Me Three. Services Needed at Discharge: DME Agency and Home Health Care Services SDOH Health Related Social Needs: Health related social needs inadequate housing, transpo insecurity Health related social needs: inadequate housing(Z59.1) and transportation insecurity(Z59.82) Health related social needs details: Housing is under construction, patient utilizes natural supports for transportation. Referrals and interventions: Patient declined.
== END 2024-02-12 15:30 | disposition home health service (06) | DRG 192 ==
LOC: ER 13:15 → MS 14:00
PROVIDERS: Nurse Practitioner Acute Care; Admitting Provider Family Medicine; Emergency Provider Student in an Organized Health Care Education/Training Program; Visit Provider Family Medicine
DX: J44.1 Chronic obstructive pulmonary disease with (acute) exacerbation (principal); R06.03 Acute respiratory distress; Z79.899 Other long term (current) drug therapy; Z87.891 Personal history of nicotine dependence; G35 Multiple sclerosis
CPT/HCPCS: 00123; 36415; 80048; 80053; 82805; 84145; 87040; 94618; 94640; 96365; 96375; 97162; 99291; J1650; 71045; 83605; 83735; 83880; 84484; 85025; 85610; 85730; 87070; 87205; 94664; 94668; 99223; 99233; 99239; J2919; J3490; J7512; J7620